=== PATIENT | female | born 1955 | race Caucasian/White ===

== ENCOUNTER → 2022-10-25 11:55 | Outpatient (CLI) | payer MEDICARE, OTHER, SELFPAY ==
--- NOTE | 2022-10-25 11:56 | DI.RAD.S_ITS ---
PROCEDURE: XR FINGER LT MIN 2V INDICATIONS: MCP joint TECHNIQUE: AP hand, 2 views of the 1st finger(s) acquired. COMPARISON: None. FINDINGS: Bones: No fractures or dislocations. Odyo-dn-ldfhbuns osteoarthritic changes are noted along radial aspect left wrist most notably at scaphoid trapezial joint and 1st CMC joint. No suspicious bony lesions. Soft tissues: No suspicious soft tissue calcifications. 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 No fracture or dislocation. Dictated by: Wilber Lopez M.D. on 10/25/2022 at 12:54 Approved by: Wilber Lopez M.D. on 10/25/2022 at 12:55
== END ==
PROVIDERS: Family Provider Nurse Practitioner Women's Health; PCP Family Medicine; Referring Provider Family Medicine; Visit Provider Family Medicine
DX: S60.019A Contusion of unspecified thumb without damage to nail, initial encounter (principal); M18.12 Unilateral primary osteoarthritis of first carpometacarpal joint, left hand; M19.032 Primary osteoarthritis, left wrist; X58.XXXA Exposure to other specified factors, initial encounter
CPT/HCPCS: 73140

== ENCOUNTER → 2023-04-01 | Outpatient (ROUT) | payer MEDICARE, OTHER, SELFPAY | PROVIDERS: Family Provider Nurse Practitioner Women's Health; PCP Family Medicine; Visit Provider Dermatology | DX: R21 Rash and other nonspecific skin eruption (principal) | CPT/HCPCS: 87529; 87798 ==

== ENCOUNTER → 2023-09-26 08:08 | Outpatient (CLI) | payer MEDICARE, OTHER, SELFPAY | PROVIDERS: Family Provider Nurse Practitioner Women's Health; PCP Family Medicine; Visit Provider Physician Assistant | DX: R30.0 Dysuria (principal) | CPT/HCPCS: 87077; 87086; 87186 ==

== ENCOUNTER → 2023-09-30 07:59 | Outpatient (CLI) | payer MEDICARE, OTHER, SELFPAY ==
[2023-09-30 09:39] LABS: Influenza A - CEPHEID Flu A NEGATIVE (NEGATIVE); Influenza B - CEPHEID Flu B NEGATIVE (NEGATIVE); Respiratory Syncytial Virus POSITIVE (Negative)
[2023-09-30 09:41] LABS: COVID-19 CEPHEID 4-PLEX PCR Negative (Negative)
== END ==
PROVIDERS: Family Provider Nurse Practitioner Women's Health; PCP Family Medicine; Visit Provider Student in an Organized Health Care Education/Training Program
DX: Z20.828 Contact with and (suspected) exposure to other viral communicable diseases (principal)
CPT/HCPCS: 0241U

== ENCOUNTER 2024-05-12 10:30 | Outpatient (RCR) | payer MEDICARE, OTHER, SELFPAY ==
--- NOTE | 2024-01-22 14:31 | PT.OIE ---
Current Diagnoses Other symptoms and signs involving the musculoskeletal system (01/22/24) Past Medical History (Last Reviewed 09/30/23 @ 10:21 by Mandy Solorzano PA-C) Atrophic vaginitis Fibroids (~1989) Hearing loss Herpes (~1978) Mumps Ovarian cyst Skin cancer (~2001) Vertigo (~2018) Wears glasses Past Surgical History (Last Reviewed 09/30/23 @ 10:21 by Mandy Solorzano PA-C) Anesthesia History of colonoscopy Visit Care Team Role Provider Type JESSICA Lindsey Family Provider Non-Staff Specialty: Medical Address: [address] [place] [address], [id number] Email: Jordan De La Rosa DO Attending Provider Physician Primary Care Provider Referring Provider Specialty: Family Practice Address: [address] [place] [address], [id number] Email: [email or web address] Physical Therapy Initial Evaluation PT-OP-A Visit Information Start: 01/22/24 10:26 Freq: Status: Active Protocol: Document 01/22/24 11:08 [facility] (Rec: 01/22/24 14:31 [facility] [id number]) Out-Patient Physical Therapy Visit Information Visit Information Visit Type Initial Evaluation Visit Note 09/10 Visit Start Time 11:20 Visit Stop Time 12:10 Visit Number 1 Number of DIRECTOR OF STUDENT AID Visits 0 PT-OP-B Current Condition Start: 01/22/24 10:26 Freq: Status: Active Protocol: Document 01/22/24 11:08 [facility] (Rec: 01/22/24 14:31 [facility] [id number]) Current Condition History of Current Condition Onset Date a couple years Current Complaints RLE dec ROM and giving out History of Current Condition Pt reports sometimes r leg gives out (thigh/hip) and does have dec ROM. It can be on/ off. Happen not for months. She had pain mid oct and couldn't get in til November to see doctor. When it happens, its hard to walk downhill. [place] walks [place] 4x[place] week and work outs at home doing resistance bands and free weights on the other days . The on and off pain has been a couple of years. She has had xrays of spine and back which didn't show much. 3-4x/ year this happens and lasts for a few weeks. Her is chiro that practices functional medicine an dhas done some work on her too. It can be stiff when first getting up. 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 She didn't have to see a doctor at the time. She was about 9 years old at the time. Pt reports occ back pain but not sure it is associated w/leg pain. She was just doing travelling and had R leg pain from buttocks to ankle when laying down and that happend a couple nights in a row and worked on her, and it resolved. Every now and then gets a leg ache there. Limited range into ER and can't sit catrina cross. When does yoga, has to sit on a block for catrina cross position. Juan Carlos did do cross fit where she had some leg injuries or back twinges, but it was only enough for her to just need a couple rest days or take it easier in workouts for a week or so. Some point in 2021 is when she had her first giving out episode. Pt had PT for dizziness d/t vertigo and since then balance has never been as good as before. Treatment Goals Patient/Caregiver Goals increase range of motion of R leg, be able to sit catrina cross, squat fully w/o tightness PT-OP-C Subjective Start: 01/22/24 10:26 Freq: Status: Active Protocol: Document 01/22/24 11:08 [facility] (Rec: 01/22/24 14:31 [facility] [id number]) Patient Questionnaires Lower Extremity Functional Scale LEFS Score 27/80 (pt filled out for instances when she does have pain) PT-OP-D Balance Start: 01/22/24 10:26 Freq: Status: Active Protocol: Document 01/22/24 11:08 [facility] (Rec: 01/22/24 14:31 [facility] [id number]) Balance Tests Single Limb Standing Single Limb- Right 9 sec inc deviation Single Limb- Left 12 sec PT-OP-E Functional Tests Start: 01/22/24 10:26 Freq: Status: Active Protocol: Document 01/22/24 11:08 [facility] (Rec: 01/22/24 14:31 [facility] [id number]) Functional Tests 30 Second Sit to Stand Test Score 12 Comments knee IR Five Times Sit to Stand Test Score 13 sec Squat Test Score can squat w/heels up but shifts slightly left and feels tight R hip Comments knee goes in on R PT-OP-G Mobility & Gait Start: 01/22/24 10:26 Freq: Status: Active Protocol: Document 01/22/24 11:08 [facility] (Rec: 01/22/24 14:31 [facility] [id number]) OP Gait Assessment Comments Gait Comments dec R>LLE push off and inc pelvis R rot w/push off; not straight trajectory w/fwd walk PT-OP-J Posture/Palpation/Skin Start: 01/22/24 10:26 Freq: Status: Active Protocol: Document 01/22/24 11:08 [facility] (Rec: 01/22/24 14:31 [facility] [id number]) Posture Evaluation [facility] Postural Classification System [facility] Postural Classifications Posterior/Posterior Vertebral Compression Test 1 Lumbar Protective Mechanism Left AP 0 Lumbar Protective Mechanism Right AP 0 Lumbar Protective Mechanism Left PA 0 Lumbar Protective Mechanism Right PA 0 Comments Posture Comments stands L rot, R pelvic shear, R Ilica crest higher, L>R femoral IR, L>R tibial IR ( both w/squat also), equal greater troch PT-OP-K Range of Motion Start: 01/22/24 10:26 Freq: Status: Active Protocol: Document 01/22/24 11:08 [facility] (Rec: 01/22/24 14:31 [facility] [id number]) Hip Goniometric Range of Motion Hip Left Active Flexion w/Knee Flexed 132 Straight Leg Raise 90 Internal Rotation 47 External Rotation 19 Right Active Flexion w/Knee Flexed 114 Straight Leg Raise 90 Internal Rotation 42 External Rotation 18 Comments ant tightness w/flex PT-OP-L Special Tests Start: 01/22/24 10:26 Freq: Status: Active Protocol: Document 01/22/24 11:08 [facility] (Rec: 01/22/24 14:31 [facility] [id number]) Special Tests Lumbar Spine Special Tests LEFT Test Results R weakness signficant; L min weakness PT-OP-M Strength Start: 01/22/24 10:26 Freq: Status: Active Protocol: Document 01/22/24 11:08 [facility] (Rec: 01/22/24 14:31 [facility] [id number]) Hip Strength Hip Manual Muscle Testing Right Flexion (L2) 3+ Fair+ Extension (S1) 3+ Fair+ Abduction 3+ Fair+ Adduction 4 Good External Rotation 3+ Fair+ Internal Rotation 4+ Good+ Left Flexion (L2) 4 Good Extension (S1) 4- Good- Abduction 4+ Good+ Adduction 4+ Good+ External Rotation 4- Good- Internal Rotation 4 Good Knee Strength Knee Manual Muscle Testing Right Flexion (S2) 4+ Good+ Extension (L3) 5 Normal Left Flexion (S2) 5 Normal Extension (L3) 5 Normal Ankle/Foot Strength Ankle and Foot Manual Muscle Testing Right Dorsiflexion (L4) 5 Normal Plantarflexion (S1) 5 Normal Left Dorsiflexion (L4) 5 Normal Plantarflexion (S1) 5 Normal Comments heel raises PT-OP-Q Treatments Start: 01/22/24 10:26 Freq: Status: Active Protocol: Document 01/22/24 11:08 [facility] (Rec: 01/22/24 14:31 [facility] [id number]) Self-Care/Home Management Treatment Education Other Education 16 min: discussed w/pt findings including dec jt mobility of hip, pelvis being off, weakness of R hip, dec core strenght and dec balance all affecting pain. edu how dec connection of RLE to core likely also affecting pain. PT-OP-T Assessment and Plan Start: 01/22/24 10:26 Freq: Status: Active Protocol: Document 01/22/24 11:08 [facility] (Rec: 01/22/24 14:31 [facility] [id number]) Physical Therapy Assessment Rehab Potential Rehabilitation Potential Excellent Evaluation Complexity Number of Personal Factors/Comorbidities 3 or More Number of Body Systems Impaired 4 or More Clinical Presentation at Evaluation Evolving Impairments Impairments Activity Tolerance,Balance, Functional Activities, Functional Mobility,Gait,Pain, Posture,ROM,Soft Tissue Mobility,Strength,Transfers Goals balance Income Auditor Goal (LTG) Pt will be able to do SLS at least 20 sec to demonstrate improved balnce LTG Duration 8/15 ROM Short Term Goal (STG) Pt iwll improve flex to equal to that of other side w/o feeling tight and improve ER by 10 deg STG Duration 7/1 Custodial Goal (LTG) Pt will be able to sit catrina cross and squat deep w/o feeling R hip tightness LTG Duration 04/15 strength Short Term Goal (STG) Pt will be indpe w/hEP STG Duration 03/02 Income Auditor Goal (LTG) Pt will score at least 3/5 LPM and at least 4+/5 on BLE MMT in order to allow greater ease with daily tasks and dec instances of RLE giving out. LTG Duration 04/15 Assessment Summary Assessment Pt presents w/2 years of dec R hip mobility along w/mult instances w/RLE giving out and having inc pain at that time. She has 3-4 bouts a year that last a couple weeks for the past couple years and (chiro) helps her through these episodes or back pain.S he does have hx of LBP and is careful how she moves for her back also. She had dec RLE/core connection, which likely contributes to this. She would benefit from skilled PT to address these deficits and improved pt function and dec instances of givng out. Physical Therapy Plan Frequency and Duration Frequency of Treatment 1-2x/wk Duration of treatment (weeks) 12 Plan of Care Start Date 01/22/24 Plan of Care End Date 04/15/24 Therapeutic Interventions Therapeutic Interventions Balance Training,Gait Training ,Home Exercise Program,Joint Mobilizations,Manual Therapy, Neuromuscular Re-education, Self-Care/Home Management,Soft Tissue Mobilization,Taping, Therapeutic Activities, Therapeutic Exercises Modalities Cold Pack/Ice Massage,Electric Stimulation,Hot Packs, Infrared Therapy,Traction- Mechanical,Ultrasound Next Visit Focus/Plan Next Note Type Treatment Note Next Visit Plan manual: hip R mobs, innominate and sacral mobs PNF for ant elevation & post dep HEP: DL hip flex isometric, sidesteps, planks, SLS, tandem balance exercises in clinic including balance board, foam, bosu
--- NOTE | 2024-01-22 14:31 | PT.OPPOC ---
Physical, Occupational & Speech Therapy At [facility] Current Diagnoses Other symptoms and signs involving the musculoskeletal system (01/22/24) Visit Care Team Role Provider Type JESSICA Lindsey Family Provider Non-Staff Specialty: Medical Address: [address] [place] [address], [id number] Email: Jordan De La Rosa DO Attending Provider Physician Primary Care Provider Referring Provider Specialty: Family Practice Address: [address] [place] [address], [address], [address] Email: [email or web address] Plan Of Care PT-OP-T Assessment and Plan Start: 01/22/24 10:26 Freq: Status: Active Protocol: Document 01/22/24 11:08 [facility] (Rec: 01/22/24 14:31 [facility] [id number]) Physical Therapy Assessment Rehab Potential Rehabilitation Potential Excellent Evaluation Complexity Number of Personal Factors/Comorbidities 3 or More Number of Body Systems Impaired 4 or More Clinical Presentation at Evaluation Evolving Impairments Impairments Activity Tolerance,Balance, Functional Activities, Functional Mobility,Gait,Pain, Posture,ROM,Soft Tissue Mobility,Strength,Transfers Goals balance Senior Care Goal (LTG) Pt will be able to do SLS at least 20 sec to demonstrate improved balnce LTG Duration 815 ROM Short Term Goal (STG) Pt iwll improve flex to equal to that of other side w/o feeling tight and improve ER by 10 deg STG Duration 03/01 Tc Operator Goal (LTG) Pt will be able to sit catrina cross and squat deep w/o feeling R hip tightness LTG Duration 8 strength Short Term Goal (STG) Pt will be indpe w/hEP STG Duration 03/02 Senior Care Goal (LTG) Pt will score at least 3/5 LPM and at least 4+/5 on BLE MMT in order to allow greater ease with daily tasks and dec instances of RLE giving out. LTG Duration 04/15 Assessment Summary Assessment Pt presents w/2 years of dec R hip mobility along w/mult instances w/RLE giving out and having inc pain at that time. She has 3-4 bouts a year that last a couple weeks for the past couple years and (chiro) helps her through these episodes or back pain.S he does have hx of LBP and is careful how she moves for her back also. She had dec RLE/core connection, which likely contributes to this. She would benefit from skilled PT to address these deficits and improved pt function and dec instances of givng out. Physical Therapy Plan Frequency and Duration Frequency of Treatment 1-2x/wk Duration of treatment (weeks) 12 Plan of Care Start Date 01/22/24 Plan of Care End Date 04/15/24 Therapeutic Interventions Therapeutic Interventions Balance Training,Gait Training ,Home Exercise Program,Joint Mobilizations,Manual Therapy, Neuromuscular Re-education, Self-Care/Home Management,Soft Tissue Mobilization,Taping, Therapeutic Activities, Therapeutic Exercises Modalities Cold Pack/Ice Massage,Electric Stimulation,Hot Packs, Infrared Therapy,Traction- Mechanical,Ultrasound Next Visit Focus/Plan Next Note Type Treatment Note Next Visit Plan manual: hip R mobs, innominate and sacral mobs PNF for ant elevation & post dep HEP: DL hip flex isometric, sidesteps, planks, SLS, tandem balance exercises in clinic including balance board, foam, bosu Plan of Care Dates Plan of Care Start Date 01/22/24 Plan of Care End Date 04/15/24 Electronically Signed by: Emerita Torres, PT 01/22/24 9137 If you are in agreement with this Plan of Care, please return a signed and dated copy. I have reviewed this Plan of Care and certify that the skilled therapy services above are required to meet the patient?s needs. Physician Signature Date Printed Name and Credentials Clinical Instructor Signature Printed Name and Credentials
--- NOTE | 2024-01-28 14:26 | PT.OTN ---
Current Diagnoses Other symptoms and signs involving the musculoskeletal system (01/28/24) Physical Therapy Treatment Note PT-OP-A Visit Information Start: 01/22/24 10:26 Freq: Status: Active Protocol: Document 01/28/24 13:01 [facility] (Rec: 01/28/24 14:26 [facility] [id number]) Out-Patient Physical Therapy Visit Information Visit Information Visit Type Treatment Note Visit Note 10/11 Visit Start Time 13:04 Visit Stop Time 13:47 Visit Number 2 Number of BRANCH OR DEPARTMENT CHIEF LIBRARIAN Visits 0 PT-OP-B Current Condition Start: 01/22/24 10:26 Freq: Status: Active Protocol: Document 01/22/24 11:08 [facility] (Rec: 01/22/24 14:31 [facility] [id number]) Current Condition History of Current Condition Onset Date a couple years Current Complaints RLE dec ROM and giving out History of Current Condition Pt reports sometimes r leg gives out (thigh/hip) and does have dec ROM. It can be on/ off. Happen not for months. She had pain mid oct and couldn't get in til November to see doctor. When it happens, its hard to walk downhill. [place] 4x[place] and work outs at home doing resistance bands and free weights on the other days . The on and off pain has been a couple of years. She has had xrays of spine and back which didn't show much. 3-4x/ year this happens and lasts for a few weeks. Her is chiro that practices functional medicine an dhas done some work on her too. It can be stiff when first getting up. 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 She didn't have to see a doctor at the time. She was about 9 years old at the time. Pt reports occ back pain but not sure it is associated w/leg pain. She was just doing travelling and had R leg pain from buttocks to ankle when laying down and that happend a couple nights in a row and worked on her, and it resolved. Every now and then gets a leg ache there. Limited range into ER and can't sit catrina cross. When does yoga, has to sit on a block for catrina cross position. Seh did do cross fit where she had some leg injuries or back twinges, but it was only enough for her to just need a couple rest days or take it easier in workouts for a week or so. Some point in 2021 is when she had her first giving out episode. Pt had PT for dizziness d/t vertigo and since then balance has never been as good as before. Treatment Goals Patient/Caregiver Goals increase range of motion of R leg, be able to sit catrina cross, squat fully w/o tightness PT-OP-C Subjective Start: 01/22/24 10:26 Freq: Status: Active Protocol: Document 01/28/24 13:01 [facility] (Rec: 01/28/24 14:26 [facility] [id number]) OP-PT Subjective Patient Comments Patient Comments pt reports walked about 6 miles in [place] and R ant thigh was sore after. PT-OP-D Balance Start: 01/22/24 10:26 Freq: Status: Active Protocol: Document 01/22/24 11:08 [facility] (Rec: 01/22/24 14:31 [facility] [id number]) Balance Tests Single Limb Standing Single Limb- Right 9 sec inc deviation Single Limb- Left 12 sec PT-OP-E Functional Tests Start: 01/22/24 10:26 Freq: Status: Active Protocol: Document 01/22/24 11:08 [facility] (Rec: 01/22/24 14:31 [facility] [id number]) Functional Tests 30 Second Sit to Stand Test Score 12 Comments knee IR Five Times Sit to Stand Test Score 13 sec Squat Test Score can squat w/heels up but shifts slightly left and feels tight R hip Comments knee goes in on R PT-OP-G Mobility & Gait Start: 01/22/24 10:26 Freq: Status: Active Protocol: Document 01/22/24 11:08 [facility] (Rec: 01/22/24 14:31 [facility] [id number]) OP Gait Assessment Comments Gait Comments dec R>LLE push off and inc pelvis R rot w/push off; not straight trajectory w/fwd walk PT-OP-J Posture/Palpation/Skin Start: 01/22/24 10:26 Freq: Status: Active Protocol: Document 01/22/24 11:08 [facility] (Rec: 01/22/24 14:31 [facility] [id number]) Posture Evaluation [facility] Postural Classification System [facility] Postural Classifications Posterior/Posterior Vertebral Compression Test 1 Lumbar Protective Mechanism Left AP 0 Lumbar Protective Mechanism Right AP 0 Lumbar Protective Mechanism Left PA 0 Lumbar Protective Mechanism Right PA 0 Comments Posture Comments stands L rot, R pelvic shear, R Ilica crest higher, L>R femoral IR, L>R tibial IR ( both w/squat also), equal greater troch PT-OP-K Range of Motion Start: 01/22/24 10:26 Freq: Status: Active Protocol: Document 01/22/24 11:08 [facility] (Rec: 01/22/24 14:31 [facility] [id number]) Hip Goniometric Range of Motion Hip Left Active Flexion w/Knee Flexed 132 Straight Leg Raise 90 Internal Rotation 47 External Rotation 19 Right Active Flexion w/Knee Flexed 114 Straight Leg Raise 90 Internal Rotation 42 External Rotation 18 Comments ant tightness w/flex PT-OP-L Special Tests Start: 01/22/24 10:26 Freq: Status: Active Protocol: Document 01/22/24 11:08 [facility] (Rec: 01/22/24 14:31 [facility] [id number]) Special Tests Lumbar Spine Special Tests LEFT Test Results R weakness signficant; L min weakness PT-OP-M Strength Start: 01/22/24 10:26 Freq: Status: Active Protocol: Document 01/22/24 11:08 [facility] (Rec: 01/22/24 14:31 [facility] [id number]) Hip Strength Hip Manual Muscle Testing Right Flexion (L2) 3+ Fair+ Extension (S1) 3+ Fair+ Abduction 3+ Fair+ Adduction 4 Good External Rotation 3+ Fair+ Internal Rotation 4+ Good+ Left Flexion (L2) 4 Good Extension (S1) 4- Good- Abduction 4+ Good+ Adduction 4+ Good+ External Rotation 4- Good- Internal Rotation 4 Good Knee Strength Knee Manual Muscle Testing Right Flexion (S2) 4+ Good+ Extension (L3) 5 Normal Left Flexion (S2) 5 Normal Extension (L3) 5 Normal Ankle/Foot Strength Ankle and Foot Manual Muscle Testing Right Dorsiflexion (L4) 5 Normal Plantarflexion (S1) 5 Normal Left Dorsiflexion (L4) 5 Normal Plantarflexion (S1) 5 Normal Comments heel raises PT-OP-Q Treatments Start: 01/22/24 10:26 Freq: Status: Active Protocol: Document 01/28/24 13:01 [facility] (Rec: 01/28/24 14:26 [facility] [id number]) Therapeutic Exercises Supine Exercises supine Supine Exercise Name 1. DL flex 2. diagonal B 3. ext B 4. flex B Side bilateral Reps/Minutes 30 sec ea Comments inc time for positioning Sitting Exercises stretch Sitting Exercise Name figure 4 Side right Reps/Minutes 30sec Standing Exercises sidestep Standing Exercise Name in mini squat Side bilateral Equipment Used lvl 2 at knees Reps/Minutes 20ft Comments cues knees over ankles Other Exercises roll out Other Exercise Name R glute w/tennis ball and R rolling pin to add Side right Manual Therapy Treatment Soft Tissue Mobilization add Body Location R Mobilization Type Rolling Intensity/Depth Moderate Body Position Hooklying Comments ER glute Body Location R Mobilization Type Sustained Pressure Intensity/Depth Moderate Body Position Prone Comments w/hip IR/ER Joint Mobilizations sacrum Comments caudal R and UPA R FM innominate Joint R caudal, ER (prone and hooklying) FM hip Comments R hip on axis ER prone and free the ball ER hooklying, inf glide R, abd inf med FM PT-OP-T Assessment and Plan Start: 01/22/24 10:26 Freq: Status: Active Protocol: Document 01/28/24 13:01 [facility] (Rec: 01/28/24 14:26 [facility] [id number]) Physical Therapy Assessment Goals balance Usp Goal (LTG) Pt will be able to do SLS at least 20 sec to demonstrate improved balnce LTG Duration 8/15 ROM Short Term Goal (STG) Pt iwll improve flex to equal to that of other side w/o feeling tight and improve ER by 10 deg STG Duration 7/1 Usp Goal (LTG) Pt will be able to sit catrnia cross and squat deep w/o feeling R hip tightness LTG Duration 8/15 strength Short Term Goal (STG) Pt will be indpe w/hEP STG Duration 7/2 Usp Goal (LTG) Pt will score at least 3/5 LPM and at least 4+/5 on BLE MMT in order to allow greater ease with daily tasks and dec instances of RLE giving out. LTG Duration 815 Assessment Summary Assessment Pt had significantly improved ER after manual treatment. She required cues throughout exercises for form. She has major R hip limitations that likely affects her pain instances. Physical Therapy Plan Frequency and Duration Frequency of Treatment 1-2x/wk Duration of treatment (weeks) 12 Plan of Care Start Date 01/22/24 Plan of Care End Date 04/15/24 Next Visit Focus/Plan Next Note Type Treatment Note Next Visit Plan manual: hip R mobs, innominate and sacral mobs, R add STM PNF for ant elevation & post dep HEP: DL hip flex isometric, sidesteps, planks, SLS, tandem balance exercises in clinic including balance board, foam, bosu
--- NOTE | 2024-01-30 11:12 | PT.OTN ---
Current Diagnoses Other symptoms and signs involving the musculoskeletal system (01/30/24) Physical Therapy Treatment Note PT-OP-A Visit Information Start: 01/22/24 10:26 Freq: Status: Active Protocol: Document 01/30/24 10:32 SP (Rec: 01/30/24 11:20 SP [id number]) Out-Patient Physical Therapy Visit Information Visit Information Visit Type Treatment Note Visit Note 11/08 Visit Start Time 10:32 Visit Stop Time 11:12 Visit Number 3 Number of RECEIVING CLERK Visits 1 PT-OP-B Current Condition Start: 01/22/24 10:26 Freq: Status: Active Protocol: Document 01/22/24 11:08 LR (Rec: 01/22/24 14:31 LR [id number]) Current Condition History of Current Condition Onset Date a couple years Current Complaints RLE dec ROM and giving out History of Current Condition Pt reports sometimes r leg gives out (thigh/hip) and does have dec ROM. It can be on/ off. Happen not for months. She had pain mid oct and couldn't get in til November to see doctor. When it happens, its hard to walk downhill. [place] walks [place] 4x[place] and work outs at home doing resistance bands and free weights on the other days . The on and off pain has been a couple of years. She has had xrays of spine and back which didn't show much. 3-4x/ year this happens and lasts for a few weeks. Her is chiro that practices functional medicine an dhas done some work on her too. It can be stiff when first getting up. 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 She didn't have to see a doctor at the time. She was about 9 years old at the time. Pt reports occ back pain but not sure it is associated w/leg pain. She was just doing travelling and had R leg pain from buttocks to ankle when laying down and that happend a couple nights in a row and worked on her, and it resolved. Every now and then gets a leg ache there. Limited range into ER and can't sit catrina cross. When does yoga, has to sit on a block for catrina cross position. Se did do cross fit where she had some leg injuries or back twinges, but it was only enough for her to just need a couple rest days or take it easier in workouts for a week or so. Some point in 2021 is when she had her first giving out episode. Pt had PT for dizziness d/t vertigo and since then balance has never been as good as before. Treatment Goals Patient/Caregiver Goals increase range of motion of R leg, be able to sit catrina cross, squat fully w/o tightness PT-OP-C Subjective Start: 01/22/24 10:26 Freq: Status: Active Protocol: Document 01/30/24 10:32 SP (Rec: 01/30/24 11:20 SP [id number]) OP-PT Subjective Patient Comments Patient Comments Pt reports wants to review HEP , question with abdominal series, #4 states Repeat B but unsure what B is to repeat. Little soreness post last tx. She states feels tightness at adductors and heat R anterolateral thigh. Expected soreness post manual and exercises doing at home. PT-OP-D Balance Start: 01/22/24 10:26 Freq: Status: Active Protocol: Document 01/22/24 11:08 [facility] (Rec: 01/22/24 14:31 [facility] [id number]) Balance Tests Single Limb Standing Single Limb- Right 9 sec inc deviation Single Limb- Left 12 sec PT-OP-E Functional Tests Start: 01/22/24 10:26 Freq: Status: Active Protocol: Document 01/22/24 11:08 [facility] (Rec: 01/22/24 14:31 [facility] [id number]) Functional Tests 30 Second Sit to Stand Test Score 12 Comments knee IR Five Times Sit to Stand Test Score 13 sec Squat Test Score can squat w/heels up but shifts slightly left and feels tight R hip Comments knee goes in on R PT-OP-G Mobility & Gait Start: 01/22/24 10:26 Freq: Status: Active Protocol: Document 01/22/24 11:08 [facility] (Rec: 01/22/24 14:31 [facility] [id number]) OP Gait Assessment Comments Gait Comments dec R>LLE push off and inc pelvis R rot w/push off; not straight trajectory w/fwd walk PT-OP-J Posture/Palpation/Skin Start: 01/22/24 10:26 Freq: Status: Active Protocol: Document 01/22/24 11:08 [facility] (Rec: 01/22/24 14:31 [facility] [id number]) Posture Evaluation [facility] Postural Classification System Bart Postural Classifications Posterior/Posterior Vertebral Compression Test 1 Lumbar Protective Mechanism Left AP 0 Lumbar Protective Mechanism Right AP 0 Lumbar Protective Mechanism Left PA 0 Lumbar Protective Mechanism Right PA 0 Comments Posture Comments stands L rot, R pelvic shear, R Ilica crest higher, L>R femoral IR, L>R tibial IR ( both w/squat also), equal greater troch PT-OP-K Range of Motion Start: 01/22/24 10:26 Freq: Status: Active Protocol: Document 01/22/24 11:08 [facility] (Rec: 01/22/24 14:31 [facility] [id number]) Hip Goniometric Range of Motion Hip Left Active Flexion w/Knee Flexed 132 Straight Leg Raise 90 Internal Rotation 47 External Rotation 19 Right Active Flexion w/Knee Flexed 114 Straight Leg Raise 90 Internal Rotation 42 External Rotation 18 Comments ant tightness w/flex PT-OP-L Special Tests Start: 01/22/24 10:26 Freq: Status: Active Protocol: Document 01/22/24 11:08 [facility] (Rec: 01/22/24 14:31 [facility] [id number]) Special Tests Lumbar Spine Special Tests LEFT Test Results R weakness signficant; L min weakness PT-OP-M Strength Start: 01/22/24 10:26 Freq: Status: Active Protocol: Document 01/22/24 11:08 [facility] (Rec: 01/22/24 14:31 [facility] [id number]) Hip Strength Hip Manual Muscle Testing Right Flexion (L2) 3+ Fair+ Extension (S1) 3+ Fair+ Abduction 3+ Fair+ Adduction 4 Good External Rotation 3+ Fair+ Internal Rotation 4+ Good+ Left Flexion (L2) 4 Good Extension (S1) 4- Good- Abduction 4+ Good+ Adduction 4+ Good+ External Rotation 4- Good- Internal Rotation 4 Good Knee Strength Knee Manual Muscle Testing Right Flexion (S2) 4+ Good+ Extension (L3) 5 Normal Left Flexion (S2) 5 Normal Extension (L3) 5 Normal Ankle/Foot Strength Ankle and Foot Manual Muscle Testing Right Dorsiflexion (L4) 5 Normal Plantarflexion (S1) 5 Normal Left Dorsiflexion (L4) 5 Normal Plantarflexion (S1) 5 Normal Comments heel raises PT-OP-Q Treatments Start: 01/22/24 10:26 Freq: Status: Active Protocol: Document 01/30/24 10:32 SP (Rec: 01/30/24 11:20 SP [id number]) Therapeutic Exercises Supine Exercises supine Supine Exercise Name 1. DL flex 2. diagonal B 3. ext B 4. flex B Side bilateral Reps/Minutes 30 sec ea Comments inc time for positioning Sitting Exercises stretch Sitting Exercise Name figure 4 Side right Reps/Minutes 30sec Comments cued tall, fwd trunk with gentle painfree pressure ER Other Exercises roll out Other Exercise Name R glute Side right Equipment Used w/tennis ball at wall, R rolling pin to add Comments cued R knee alignment with foot when rolling glute at wall Manual Therapy Treatment Soft Tissue Mobilization add Body Location R Mobilization Type Instrument Assisted,Rolling Intensity/Depth Moderate Body Position Hooklying Comments manual and rolling pin during ER glute Body Location R Mobilization Type Sustained Pressure,Other Intensity/Depth Moderate Body Position Sidelying Comments w/hip IR/ER Joint Mobilizations innominate Joint R ASIS anterior rotated, L ASIS posterior rotated Comments MET R isometric hip ext 90/90. L isometric hip flex 90/90. No in/outflare Wilson. hip Comments strap: R free the ball ER hooklying PT-OP-T Assessment and Plan Start: 01/22/24 10:26 Freq: Status: Active Protocol: Document 01/30/24 10:32 SP (Rec: 01/30/24 11:20 SP [id number]) Physical Therapy Assessment Goals balance Senior Care Goal (LTG) Pt will be able to do SLS at least 20 sec to demonstrate improved balnce LTG Duration 8/15 ROM Short Term Goal (STG) Pt iwll improve flex to equal to that of other side w/o feeling tight and improve ER by 10 deg STG Duration 7/1 Pipelines Supervisor Goal (LTG) Pt will be able to sit catrina cross and squat deep w/o feeling R hip tightness LTG Duration 8/15 strength Short Term Goal (STG) Pt will be indpe w/hEP STG Duration 7/2 Pipelines Supervisor Goal (LTG) Pt will score at least 3/5 LPM and at least 4+/5 on BLE MMT in order to allow greater ease with daily tasks and dec instances of RLE giving out. LTG Duration 04/15 Assessment Summary Assessment Tx focused on proper form with HEP using HO. Good manual response and carryover, ed instruction for set up and angle with R knee alignment with foot ball roll glut and rolling pin seated foot elevated on step. Pt reported felt more confident with how and when should perform HEP. Physical Therapy Plan Frequency and Duration Frequency of Treatment 1-2x/wk Duration of treatment (weeks) 12 Plan of Care Start Date 01/22/24 Plan of Care End Date 04/15/24 Therapeutic Interventions Therapeutic Interventions Balance Training,Gait Training ,Home Exercise Program,Joint Mobilizations,Manual Therapy, Neuromuscular Re-education, Self-Care/Home Management,Soft Tissue Mobilization,Taping, Therapeutic Activities, Therapeutic Exercises Modalities Cold Pack/Ice Massage,Electric Stimulation,Hot Packs, Infrared Therapy,Traction- Mechanical,Ultrasound Next Visit Focus/Plan Next Note Type Treatment Note Next Visit Plan REview HEP: progress as indicated next tx. Pt wants to incorporate balance eventually. POC: manual: hip R mobs, innominate and sacral mobs, R add STM PNF for ant elevation & post dep HEP: DL hip flex isometric, sidesteps, planks, SLS, tandem balance exercises in clinic including balance board, foam, bosu
--- NOTE | 2024-02-02 11:16 | PT.OTN ---
Current Diagnoses Other symptoms and signs involving the musculoskeletal system (02/02/24) Physical Therapy Treatment Note PT-OP-A Visit Information Start: 01/22/24 10:26 Freq: Status: Active Protocol: Document 02/02/24 10:31 SP (Rec: 02/02/24 11:22 SP [id number]) Out-Patient Physical Therapy Visit Information Visit Information Visit Type Treatment Note Visit Note 12/09 post eval Visit Start Time 10:31 Visit Stop Time 11:16 Visit Number 4 Number of GALLERY OR MUSEUM GUIDE Visits 2 PT-OP-B Current Condition Start: 01/22/24 10:26 Freq: Status: Active Protocol: Document 01/22/24 11:08 [facility] (Rec: 01/22/24 14:31 [facility] [id number]) Current Condition History of Current Condition Onset Date a couple years Current Complaints RLE dec ROM and giving out History of Current Condition Pt reports sometimes r leg gives out (thigh/hip) and does have dec ROM. It can be on/ off. Happen not for months. She had pain mid oct and couldn't get in til November to see doctor. When it happens, its hard to walk downhill. [place] 4x[place] and work outs at home doing resistance bands and free weights on the other days . The on and off pain has been a couple of years. She has had xrays of spine and back which didn't show much. 3-4x/ year this happens and lasts for a few weeks. Her is chiro that practices functional medicine an dhas done some work on her too. It can be stiff when first getting up. Has massage and acupuncture but nothing has helped jail. 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 She didn't have to see a doctor at the time. She was about 9 years old at the time. Pt reports occ back pain but not sure it is associated w/leg pain. She was just doing travelling and had R leg pain from buttocks to ankle when laying down and that happend a couple nights in a row and worked on her, and it resolved. Every now and then gets a leg ache there. Limited range into ER and can't sit catrina cross. When does yoga, has to sit on a block for catrina cross position. Seh did do cross fit where she had some leg injuries or back twinges, but it was only enough for her to just need a couple rest days or take it easier in workouts for a week or so. Some point in 2021 is when she had her first giving out episode. Pt had PT for dizziness d/t vertigo and since then balance has never been as good as before. Treatment Goals Patient/Caregiver Goals increase range of motion of R leg, be able to sit catrina cross, squat fully w/o tightness PT-OP-C Subjective Start: 01/22/24 10:26 Freq: Status: Active Protocol: Document 02/02/24 10:31 SP (Rec: 02/02/24 11:22 SP [id number]) OP-PT Subjective Patient Comments Patient Comments Pt reports wants to review ball wall self STMs with yoga ball vs tennis ball and rolling pin. ALso the abdominal series HEP still confused on #3-4. PT-OP-D Balance Start: 01/22/24 10:26 Freq: Status: Active Protocol: Document 01/22/24 11:08 [facility] (Rec: 01/22/24 14:31 [facility] [id number]) Balance Tests Single Limb Standing Single Limb- Right 9 sec inc deviation Single Limb- Left 12 sec PT-OP-E Functional Tests Start: 01/22/24 10:26 Freq: Status: Active Protocol: Document 01/22/24 11:08 [facility] (Rec: 01/22/24 14:31 [facility] [id number]) Functional Tests 30 Second Sit to Stand Test Score 12 Comments knee IR Five Times Sit to Stand Test Score 13 sec Squat Test Score can squat w/heels up but shifts slightly left and feels tight R hip Comments knee goes in on R PT-OP-G Mobility & Gait Start: 01/22/24 10:26 Freq: Status: Active Protocol: Document 01/22/24 11:08 [facility] (Rec: 01/22/24 14:31 [facility] [id number]) OP Gait Assessment Comments Gait Comments dec R>LLE push off and inc pelvis R rot w/push off; not straight trajectory w/fwd walk PT-OP-J Posture/Palpation/Skin Start: 01/22/24 10:26 Freq: Status: Active Protocol: Document 01/22/24 11:08 [facility] (Rec: 01/22/24 14:31 [facility] [id number]) Posture Evaluation [facility] Postural Classification System Bart Postural Classifications Posterior/Posterior Vertebral Compression Test 1 Lumbar Protective Mechanism Left AP 0 Lumbar Protective Mechanism Right AP 0 Lumbar Protective Mechanism Left PA 0 Lumbar Protective Mechanism Right PA 0 Comments Posture Comments stands L rot, R pelvic shear, R Ilica crest higher, L>R femoral IR, L>R tibial IR ( both w/squat also), equal greater troch PT-OP-K Range of Motion Start: 01/22/24 10:26 Freq: Status: Active Protocol: Document 01/22/24 11:08 [facility] (Rec: 01/22/24 14:31 [facility] [id number]) Hip Goniometric Range of Motion Hip Left Active Flexion w/Knee Flexed 132 Straight Leg Raise 90 Internal Rotation 47 External Rotation 19 Right Active Flexion w/Knee Flexed 114 Straight Leg Raise 90 Internal Rotation 42 External Rotation 18 Comments ant tightness w/flex PT-OP-L Special Tests Start: 01/22/24 10:26 Freq: Status: Active Protocol: Document 01/22/24 11:08 [facility] (Rec: 01/22/24 14:31 [facility] [id number]) Special Tests Lumbar Spine Special Tests LEFT Test Results R weakness signficant; L min weakness PT-OP-M Strength Start: 01/22/24 10:26 Freq: Status: Active Protocol: Document 01/22/24 11:08 [facility] (Rec: 01/22/24 14:31 [facility] [id number]) Hip Strength Hip Manual Muscle Testing Right Flexion (L2) 3+ Fair+ Extension (S1) 3+ Fair+ Abduction 3+ Fair+ Adduction 4 Good External Rotation 3+ Fair+ Internal Rotation 4+ Good+ Left Flexion (L2) 4 Good Extension (S1) 4- Good- Abduction 4+ Good+ Adduction 4+ Good+ External Rotation 4- Good- Internal Rotation 4 Good Knee Strength Knee Manual Muscle Testing Right Flexion (S2) 4+ Good+ Extension (L3) 5 Normal Left Flexion (S2) 5 Normal Extension (L3) 5 Normal Ankle/Foot Strength Ankle and Foot Manual Muscle Testing Right Dorsiflexion (L4) 5 Normal Plantarflexion (S1) 5 Normal Left Dorsiflexion (L4) 5 Normal Plantarflexion (S1) 5 Normal Comments heel raises PT-OP-Q Treatments Start: 01/22/24 10:26 Freq: Status: Active Protocol: Document 02/02/24 10:31 SP (Rec: 02/02/24 11:22 SP [id number]) Therapeutic Exercises Supine Exercises self pelvic realignment Supine Exercise Name MET R ant>posterior, L post> anterior Side bilateral Equipment Used dowel laced through legs Reps/Minutes 5 SH x5 reps Comments pnfree Fig 4 Supine Exercise Name R ankle L inner thigh, L ankle over R thigh Side bilateral Reps/Minutes 30SH Comments good adductor stretch supine Supine Exercise Name 1. DL flex 2. diagonal B 3. ext B 4. flex B Side bilateral Reps/Minutes 30 sec 1-3, 10 SH#4 /c pillow under pelvis Comments inc time for positioning 2-4, breath Prone Exercises quad stretch Resistance pillow under pelvis Equipment Used strap R ankle, able reach L ankle Reps/Minutes 30 SH x2 Comments pillow helped LB tension reducation on R- better stretch Standing Exercises lunge Equipment Used mirror, light contact counter as needed Reps/Minutes 2x5 reps Comments max cues for feet// with knees Other Exercises roll out Other Exercise Name R glute Side right Equipment Used w/tennis ball at wall, R rolling pin to add Comments cued R knee alignment with foot when rolling glute at wall Manual Therapy Treatment Other Other Manual Treatments ASIS R ant tilt, L post tilt- instruction self alignment: use dowel hip ext isometric R , hip flex isometric L- correction level pelvis Neuro Re-Education Treatment Balance Activities BOSU Details lunge stepping Surface AROM> 5# DBs Comments very challenging maintain feet & knees parallel. PT-OP-T Assessment and Plan Start: 01/22/24 10:26 Freq: Status: Active Protocol: Document 02/02/24 10:31 SP (Rec: 02/02/24 11:22 SP [id number]) Physical Therapy Assessment Goals balance Retirement Goal (LTG) Pt will be able to do SLS at least 20 sec to demonstrate improved balnce LTG Duration 8/15 ROM Short Term Goal (STG) Pt iwll improve flex to equal to that of other side w/o feeling tight and improve ER by 10 deg STG Duration 7/1 Supervisor Capacitor Processing Goal (LTG) Pt will be able to sit catrina cross and squat deep w/o feeling R hip tightness LTG Duration 04/15 strength Short Term Goal (STG) Pt will be indpe w/hEP STG Duration 03/02 Supervisor [employer] Processing Goal (LTG) Pt will score at least 3/5 LPM and at least 4+/5 on BLE MMT in order to allow greater ease with daily tasks and dec instances of RLE giving out. LTG Duration 04/15 Assessment Summary Assessment Pt had good response to review self MET pelvic alignment, use rolling pin and ball on wall for carryover flexibility and leg/ hip relief. Improved understanding use HOs with ther ex review, ed cues for hand an LE positioning ab series. Incorporated quad stretch and more active progression lunge for glut and hip abd strengthening toward return to self gym program. Physical Therapy Plan Frequency and Duration Frequency of Treatment 1-2x/wk Duration of treatment (weeks) 12 Plan of Care Start Date 01/22/24 Plan of Care End Date 04/15/24 Therapeutic Interventions Therapeutic Interventions Balance Training,Gait Training ,Home Exercise Program,Joint Mobilizations,Manual Therapy, Neuromuscular Re-education, Self-Care/Home Management,Soft Tissue Mobilization,Taping, Therapeutic Activities, Therapeutic Exercises Modalities Cold Pack/Ice Massage,Electric Stimulation,Hot Packs, Infrared Therapy,Traction- Mechanical,Ultrasound Next Visit Focus/Plan Next Note Type Treatment Note Next Visit Plan REview added lunges as progression and self MET /c dowel. Pt wants to incorporate balance eventually. POC: manual: hip R mobs, innominate and sacral mobs, R add STM PNF for ant elevation & post dep HEP: DL hip flex isometric, sidesteps, planks, SLS, tandem balance exercises in clinic including balance board, foam, bosu
--- NOTE | 2024-02-04 11:47 | PT.OTN ---
Current Diagnoses Other symptoms and signs involving the musculoskeletal system (02/04/24) Physical Therapy Treatment Note PT-OP-A Visit Information Start: 01/22/24 10:26 Freq: Status: Active Protocol: Document 02/04/24 10:33 [facility] (Rec: 02/04/24 11:47 [facility] [id number]) Out-Patient Physical Therapy Visit Information Visit Information Visit Type Treatment Note Visit Note 01/08 Visit Start Time 10:34 Visit Stop Time 11:15 Visit Number 5 Number of SADDLE MAKER Visits 0 PT-OP-B Current Condition Start: 01/22/24 10:26 Freq: Status: Active Protocol: Document 01/22/24 11:08 [facility] (Rec: 01/22/24 14:31 [facility] [id number]) Current Condition History of Current Condition Onset Date a couple years Current Complaints RLE dec ROM and giving out History of Current Condition Pt reports sometimes r leg gives out (thigh/hip) and does have dec ROM. It can be on/ off. Happen not for months. She had pain mid oct and couldn't get in til November to see doctor. When it happens, its hard to walk downhill. [place] 4x[place] and work outs at home doing resistance bands and free weights on the other days . The on and off pain has been a couple of years. She has had xrays of spine and back which didn't show much. 3-4x/ year this happens and lasts for a few weeks. Her is chiro that practices functional medicine an dhas done some work on her too. It can be stiff when first getting up. Has massage and acupuncture but nothing has helped [employer]. 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 She didn't have to see a doctor at the time. She was about 9 years old at the time. Pt reports occ back pain but not sure it is associated w/leg pain. She was just doing travelling and had R leg pain from buttocks to ankle when laying down and that happend a couple nights in a row and worked on her, and it resolved. Every now and then gets a leg ache there. Limited range into ER and can't sit catrina cross. When does yoga, has to sit on a block for catrina cross position. Seh did do cross fit where she had some leg injuries or back twinges, but it was only enough for her to just need a couple rest days or take it easier in workouts for a week or so. Some point in 2021 is when she had her first giving out episode. Pt had PT for dizziness d/t vertigo and since then balance has never been as good as before. Treatment Goals Patient/Caregiver Goals increase range of motion of R leg, be able to sit catrina cross, squat fully w/o tightness PT-OP-C Subjective Start: 01/22/24 10:26 Freq: Status: Active Protocol: Document 02/04/24 10:33 [facility] (Rec: 02/04/24 11:47 [facility] [id number]) OP-PT Subjective Patient Comments Patient Comments reports lunges are difficult. did a workout earlier PT-OP-D Balance Start: 01/22/24 10:26 Freq: Status: Active Protocol: Document 01/22/24 11:08 [facility] (Rec: 01/22/24 14:31 [facility] [id number]) Balance Tests Single Limb Standing Single Limb- Right 9 sec inc deviation Single Limb- Left 12 sec PT-OP-E Functional Tests Start: 01/22/24 10:26 Freq: Status: Active Protocol: Document 01/22/24 11:08 [facility] (Rec: 01/22/24 14:31 [facility] [id number]) Functional Tests 30 Second Sit to Stand Test Score 12 Comments knee IR Five Times Sit to Stand Test Score 13 sec Squat Test Score can squat w/heels up but shifts slightly left and feels tight R hip Comments knee goes in on R PT-OP-G Mobility & Gait Start: 01/22/24 10:26 Freq: Status: Active Protocol: Document 01/22/24 11:08 [facility] (Rec: 01/22/24 14:31 [facility] [id number]) OP Gait Assessment Comments Gait Comments dec R>LLE push off and inc pelvis R rot w/push off; not straight trajectory w/fwd walk PT-OP-J Posture/Palpation/Skin Start: 01/22/24 10:26 Freq: Status: Active Protocol: Document 01/22/24 11:08 [facility] (Rec: 01/22/24 14:31 [facility] [id number]) Posture Evaluation Bart Postural Classification System [facility] Postural Classifications Posterior/Posterior Vertebral Compression Test 1 Lumbar Protective Mechanism Left AP 0 Lumbar Protective Mechanism Right AP 0 Lumbar Protective Mechanism Left PA 0 Lumbar Protective Mechanism Right PA 0 Comments Posture Comments stands L rot, R pelvic shear, R Ilica crest higher, L>R femoral IR, L>R tibial IR ( both w/squat also), equal greater troch PT-OP-K Range of Motion Start: 01/22/24 10:26 Freq: Status: Active Protocol: Document 01/22/24 11:08 [facility] (Rec: 01/22/24 14:31 [facility] [id number]) Hip Goniometric Range of Motion Hip Left Active Flexion w/Knee Flexed 132 Straight Leg Raise 90 Internal Rotation 47 External Rotation 19 Right Active Flexion w/Knee Flexed 114 Straight Leg Raise 90 Internal Rotation 42 External Rotation 18 Comments ant tightness w/flex PT-OP-L Special Tests Start: 01/22/24 10:26 Freq: Status: Active Protocol: Document 01/22/24 11:08 [facility] (Rec: 01/22/24 14:31 [facility] [id number]) Special Tests Lumbar Spine Special Tests LEFT Test Results R weakness signficant; L min weakness PT-OP-M Strength Start: 01/22/24 10:26 Freq: Status: Active Protocol: Document 01/22/24 11:08 [facility] (Rec: 01/22/24 14:31 [facility] [id number]) Hip Strength Hip Manual Muscle Testing Right Flexion (L2) 3+ Fair+ Extension (S1) 3+ Fair+ Abduction 3+ Fair+ Adduction 4 Good External Rotation 3+ Fair+ Internal Rotation 4+ Good+ Left Flexion (L2) 4 Good Extension (S1) 4- Good- Abduction 4+ Good+ Adduction 4+ Good+ External Rotation 4- Good- Internal Rotation 4 Good Knee Strength Knee Manual Muscle Testing Right Flexion (S2) 4+ Good+ Extension (L3) 5 Normal Left Flexion (S2) 5 Normal Extension (L3) 5 Normal Ankle/Foot Strength Ankle and Foot Manual Muscle Testing Right Dorsiflexion (L4) 5 Normal Plantarflexion (S1) 5 Normal Left Dorsiflexion (L4) 5 Normal Plantarflexion (S1) 5 Normal Comments heel raises PT-OP-Q Treatments Start: 01/22/24 10:26 Freq: Status: Active Protocol: Document 02/04/24 10:33 [facility] (Rec: 02/04/24 11:47 [facility] [id number]) Therapeutic Exercises Supine Exercises supine Supine Exercise Name 1. DL flex 2. diagonal B 3. ext B 4. flex B Side bilateral Reps/Minutes 1 min total w/quick position review Standing Exercises squat Side bilateral Reps/Minutes 8 Comments cues for knee position and tracking stretch Standing Exercise Name cues for back neutral and slow pull back Side right Reps/Minutes 30 sec lunge Equipment Used mirror, light contact counter as needed Reps/Minutes 10 reps Comments max cues for feet// with knees sidestep Standing Exercise Name in mini squat Side bilateral Equipment Used lvl 2 at knees Reps/Minutes 20ft Comments cues knees over ankles Manual Therapy Treatment Soft Tissue Mobilization abdomen Mobilization Type Sustained Pressure Intensity/Depth Moderate Body Position Hooklying Comments ligament of cleyat hip flexor Body Location R Mobilization Type Sustained Pressure Intensity/Depth Moderate Comments W/AAROm flex circumfrential Body Location R at hip jt Mobilization Type Sustained Pressure Intensity/Depth Moderate Comments w/hip flex, ER, abd ITB Body Location R Mobilization Type Rolling Intensity/Depth Moderate add Body Location R Mobilization Type Rolling Intensity/Depth Moderate Body Position Hooklying Comments w/ER, flex, abd Joint Mobilizations innominate Comments R ER FM ; R add FM hip Comments R add FM PT-OP-T Assessment and Plan Start: 01/22/24 10:26 Freq: Status: Active Protocol: Document 02/04/24 10:33 [facility] (Rec: 02/04/24 11:47 [facility] [id number]) Physical Therapy Assessment Goals balance Automatic Lathe Operator Goal (LTG) Pt will be able to do SLS at least 20 sec to demonstrate improved balnce LTG Duration 8/15 ROM Short Term Goal (STG) Pt iwll improve flex to equal to that of other side w/o feeling tight and improve ER by 10 deg STG Duration 7/ Automatic Lathe Operator Goal (LTG) Pt will be able to sit catrina cross and squat deep w/o feeling R hip tightness LTG Duration 8/15 strength Short Term Goal (STG) Pt will be indpe w/hEP STG Duration 7/2 Senior Living Goal (LTG) Pt will score at least 3/5 LPM and at least 4+/5 on BLE MMT in order to allow greater ease with daily tasks and dec instances of RLE giving out. LTG Duration 04/15 Assessment Summary Assessment pt had improved form w/squats an dlunges w/cues and use of mirror. She had significiant tightness and tenderness of hip flexors. Physical Therapy Plan Next Visit Focus/Plan Next Note Type Treatment Note Next Visit Plan review lunges and squats cont manual to improve R hip mobility; work on quad w/ Rectus femoris mobility
--- NOTE | 2024-02-13 12:00 | PT.OTN ---
Current Diagnoses Other symptoms and signs involving the musculoskeletal system (02/13/24) Physical Therapy Treatment Note PT-OP-A Visit Information Start: 01/22/24 10:26 Freq: Status: Active Protocol: Document 02/13/24 11:17 [facility] (Rec: 02/13/24 12:22 [facility] [id number]) Out-Patient Physical Therapy Visit Information Visit Information Visit Type Treatment Note Visit Note 02/08 Visit Start Time 11:17 Visit Stop Time 12:00 Visit Number 6 Number of ELEPHANT TAMER Visits 1 PT-OP-B Current Condition Start: 01/22/24 10:26 Freq: Status: Active Protocol: Document 01/22/24 11:08 [facility] (Rec: 01/22/24 14:31 [facility] [id number]) Current Condition History of Current Condition Onset Date a couple years Current Complaints RLE dec ROM and giving out History of Current Condition Pt reports sometimes r leg gives out (thigh/hip) and does have dec ROM. It can be on/ off. Happen not for months. She had pain mid oct and couldn't get in til November to see doctor. When it happens, its hard to walk downhill. [place] 4[place] and work outs at home doing resistance bands and free weights on the other days . The on and off pain has been a couple of years. She has had xrays of spine and back which didn't show much. 3-4x/ year this happens and lasts for a few weeks. Her is chiro that practices functional medicine an dhas done some work on her too. It can be stiff when first getting up. 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 She didn't have to see a doctor at the time. She was about 9 years old at the time. Pt reports occ back pain but not sure it is associated w/leg pain. She was just doing travelling and had R leg pain from buttocks to ankle when laying down and that happend a couple nights in a row and worked on her, and it resolved. Every now and then gets a leg ache there. Limited range into ER and can't sit catrina cross. When does yoga, has to sit on a block for catrina cross position. Se did do cross fit where she had some leg injuries or back twinges, but it was only enough for her to just need a couple rest days or take it easier in workouts for a week or so. Some point in 2021 is when she had her first giving out episode. Pt had PT for dizziness d/t vertigo and since then balance has never been as good as before. Treatment Goals Patient/Caregiver Goals increase range of motion of R leg, be able to sit catrina cross, squat fully w/o tightness PT-OP-C Subjective Start: 01/22/24 10:26 Freq: Status: Active Protocol: Document 02/13/24 11:17 [facility] (Rec: 02/13/24 12:22 [facility] [id number]) OP-PT Subjective Patient Comments Patient Comments Pt reports felt better after last, today R adductor and quad tight. She states using rolling pin to adductor. [place] but not hills dueto causes pain adductor descending. PT-OP-D Balance Start: 01/22/24 10:26 Freq: Status: Active Protocol: Document 01/22/24 11:08 [facility] (Rec: 01/22/24 14:31 [facility] [id number]) Balance Tests Single Limb Standing Single Limb- Right 9 sec inc deviation Single Limb- Left 12 sec PT-OP-E Functional Tests Start: 01/22/24 10:26 Freq: Status: Active Protocol: Document 01/22/24 11:08 [facility] (Rec: 01/22/24 14:31 [facility] [id number]) Functional Tests 30 Second Sit to Stand Test Score 12 Comments knee IR Five Times Sit to Stand Test Score 13 sec Squat Test Score can squat w/heels up but shifts slightly left and feels tight R hip Comments knee goes in on R PT-OP-G Mobility & Gait Start: 01/22/24 10:26 Freq: Status: Active Protocol: Document 01/22/24 11:08 [facility] (Rec: 01/22/24 14:31 [facility] [id number]) OP Gait Assessment Comments Gait Comments dec R>LLE push off and inc pelvis R rot w/push off; not straight trajectory w/fwd walk PT-OP-J Posture/Palpation/Skin Start: 01/22/24 10:26 Freq: Status: Active Protocol: Document 01/22/24 11:08 [facility] (Rec: 01/22/24 14:31 [facility] [id number]) Posture Evaluation Bart Postural Classification System Bart Postural Classifications Posterior/Posterior Vertebral Compression Test 1 Lumbar Protective Mechanism Left AP 0 Lumbar Protective Mechanism Right AP 0 Lumbar Protective Mechanism Left PA 0 Lumbar Protective Mechanism Right PA 0 Comments Posture Comments stands L rot, R pelvic shear, R Ilica crest higher, L>R femoral IR, L>R tibial IR ( both w/squat also), equal greater troch PT-OP-K Range of Motion Start: 01/22/24 10:26 Freq: Status: Active Protocol: Document 01/22/24 11:08 [facility] (Rec: 01/22/24 14:31 [facility] [id number]) Hip Goniometric Range of Motion Hip Left Active Flexion w/Knee Flexed 132 Straight Leg Raise 90 Internal Rotation 47 External Rotation 19 Right Active Flexion w/Knee Flexed 114 Straight Leg Raise 90 Internal Rotation 42 External Rotation 18 Comments ant tightness w/flex PT-OP-L Special Tests Start: 01/22/24 10:26 Freq: Status: Active Protocol: Document 01/22/24 11:08 [facility] (Rec: 01/22/24 14:31 [facility] [id number]) Special Tests Lumbar Spine Special Tests LEFT Test Results R weakness signficant; L min weakness PT-OP-M Strength Start: 01/22/24 10:26 Freq: Status: Active Protocol: Document 01/22/24 11:08 [facility] (Rec: 01/22/24 14:31 [facility] [id number]) Hip Strength Hip Manual Muscle Testing Right Flexion (L2) 3+ Fair+ Extension (S1) 3+ Fair+ Abduction 3+ Fair+ Adduction 4 Good External Rotation 3+ Fair+ Internal Rotation 4+ Good+ Left Flexion (L2) 4 Good Extension (S1) 4- Good- Abduction 4+ Good+ Adduction 4+ Good+ External Rotation 4- Good- Internal Rotation 4 Good Knee Strength Knee Manual Muscle Testing Right Flexion (S2) 4+ Good+ Extension (L3) 5 Normal Left Flexion (S2) 5 Normal Extension (L3) 5 Normal Ankle/Foot Strength Ankle and Foot Manual Muscle Testing Right Dorsiflexion (L4) 5 Normal Plantarflexion (S1) 5 Normal Left Dorsiflexion (L4) 5 Normal Plantarflexion (S1) 5 Normal Comments heel raises PT-OP-Q Treatments Start: 01/22/24 10:26 Freq: Status: Active Protocol: Document 02/13/24 11:17 [facility] (Rec: 02/13/24 12:22 [facility] [id number]) Therapeutic Exercises Supine Exercises Fig 4 Supine Exercise Name R ankle L inner thigh>over L thigh, L ankle over R thigh Side bilateral Equipment Used good stretch: adductor longus & add jairo end tx Reps/Minutes 30SH x2 Comments good adductor stretch after manual, able put R ankle over L leg Standing Exercises step fwd down/back up Standing Exercise Name trialed and added to HEP- declined HO Side bilateral Resistance R>L Equipment Used 6 step, initially HR then none Reps/Minutes several reps: stairs then step front mirror Comments cued feet fwd, knee lateral track with ankle con/ecc return- tiring Lat leg stretch Standing Exercise Name quad, flexor and little adductor Side right Equipment Used grasp ankle behind her Reps/Minutes 30 sec Comments cued knee toward floor and pelvis fwd lunge Equipment Used mirror, carpet seam assist alignment Reps/Minutes several reps Comments max cues for feet// with knees , hip ER midline with feet Manual Therapy Treatment Soft Tissue Mobilization circumfrential Body Location R at hip jt and upper thigh Mobilization Type Sustained Pressure Intensity/Depth Moderate Comments MWM: 1. Long axis MF /c hip ER 2. w/hip flex, ER, abd add Body Location R Mobilization Type Rolling Intensity/Depth Moderate Body Position Hooklying Comments w/long axis hip ER Joint Mobilizations hip Direction anteromedial glide Grade II Body Position Supine Reps/Duration 5 Comments strap, free the ball: R FM /c hip ER PT-OP-T Assessment and Plan Start: 01/22/24 10:26 Freq: Status: Active Protocol: Document 02/13/24 11:17 [facility] (Rec: 02/13/24 12:22 SP [id number]) Physical Therapy Assessment Goals balance Cloth Bleaching Range Tender Goal (LTG) Pt will be able to do SLS at least 20 sec to demonstrate improved balnce LTG Duration 8/15 ROM Short Term Goal (STG) Pt iwll improve flex to equal to that of other side w/o feeling tight and improve ER by 10 deg STG Duration 7/1 Halfway Goal (LTG) Pt will be able to sit catrina cross and squat deep w/o feeling R hip tightness LTG Duration 04/15 strength Short Term Goal (STG) Pt will be indpe w/hEP STG Duration 03/02 Cloth Bleaching Range Tender Goal (LTG) Pt will score at least 3/5 LPM and at least 4+/5 on BLE MMT in order to allow greater ease with daily tasks and dec instances of RLE giving out. LTG Duration 04/15 Assessment Summary Assessment Pt improved reduction R adductor tightness after manual, able to perform FIg 4 with R ankle over L leg. She reports lateral R LE musculture (glut med, peroneals) tiring effort performing correction wtih cuing R knee alignment lateral with foot improved form lunges and initiated step down fwd to assist ROM and strengthening to descend inclined at park without pain R inner thigh. Physical Therapy Plan Frequency and Duration Frequency of Treatment 1-2x/wk Duration of treatment (weeks) 12 Plan of Care Start Date 01/22/24 Plan of Care End Date 04/15/24 Therapeutic Interventions Therapeutic Interventions Balance Training,Gait Training ,Home Exercise Program,Joint Mobilizations,Manual Therapy, Neuromuscular Re-education, Self-Care/Home Management,Soft Tissue Mobilization,Taping, Therapeutic Activities, Therapeutic Exercises Modalities Cold Pack/Ice Massage,Electric Stimulation,Hot Packs, Infrared Therapy,Traction- Mechanical,Ultrasound Next Visit Focus/Plan Next Note Type Treatment Note Next Visit Plan Review lunges, step down and squats with knee/ankle alignment. POC: cont manual to improve R hip mobility; work on quad w/ Rectus femoris and adductor mobility
--- NOTE | 2024-02-20 16:35 | PT.OTN ---
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 It can be on/ off. Happen not for months. She had pain mid oct and couldn't get in til November to see doctor. When it happens, its hard to walk downhill. [place] walks [place] 4x[place] and work outs at home doing resistance bands and free weights on the other days . The on and off pain has been a couple of years. She has had xrays of spine and back which didn't show much. 3-4x/ year this happens and lasts for a few weeks. Her is chiro that practices functional medicine an dhas done some work on her too. It can be stiff when first getting up. Has massage and acupuncture but nothing has helped residential. 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 She didn't have to see a doctor at the time. She was about 9 years old at the time. Pt reports occ back pain but not sure it is associated w/leg pain. She was just doing travelling and had R leg pain from buttocks to ankle when laying down and that happend a couple nights in a row and worked on her, and it resolved. Every now and then gets a leg ache there. Limited range into ER and can't sit catrina cross. When does yoga, has to sit on a block for catrina cross position. Juan Carlos did do cross fit where she had some leg injuries or back twinges, but it was only enough for her to just need a couple rest days or take it easier in workouts for a week or so. Some point in 2021 is when she had her first giving out episode. Pt had PT for dizziness d/t vertigo and since then balance has never been as good as before. Treatment Goals Patient/Caregiver Goals increase range of motion of R leg, be able to sit catrina cross, squat fully w/o tightness PT-OP-C Subjective Start: 01/22/24 10:26 Freq: Status: Active Protocol: Document 02/20/24 13:19 AB (Rec: 02/20/24 16:34 AB [id number]) OP-PT Subjective Patient Comments Patient Comments Patient reports she is better, some of the physical therapy is getting easier, able to keep knees aligned with lunges , and has less bumps when using the rolling pin. Patient reports crossing right leg feels stiffness. 9 sec right LE left 2,4 seconds with ipsilateral trunk sidebend and femoral IR. PT-OP-D Balance Start: 01/22/24 10:26 Freq: Status: Active Protocol: Document 01/22/24 11:08 [facility] (Rec: 01/22/24 14:31 [facility] [id number]) Balance Tests Single Limb Standing Single Limb- Right 9 sec inc deviation Single Limb- Left 12 sec PT-OP-E Functional Tests Start: 01/22/24 10:26 Freq: Status: Active Protocol: Document 01/22/24 11:08 [facility] (Rec: 01/22/24 14:31 [facility] [id number]) Functional Tests 30 Second Sit to Stand Test Score 12 Comments knee IR Five Times Sit to Stand Test Score 13 sec Squat Test Score can squat w/heels up but shifts slightly left and feels tight R hip Comments knee goes in on R PT-OP-G Mobility & Gait Start: 01/22/24 10:26 Freq: Status: Active Protocol: Document 01/22/24 11:08 [facility] (Rec: 01/22/24 14:31 [facility] [id number]) OP Gait Assessment Comments Gait Comments dec R>LLE push off and inc pelvis R rot w/push off; not straight trajectory w/fwd walk PT-OP-J Posture/Palpation/Skin Start: 01/22/24 10:26 Freq: Status: Active Protocol: Document 01/22/24 11:08 [facility] (Rec: 01/22/24 14:31 [facility] [id number]) Posture Evaluation [facility] Postural Classification System Bart Postural Classifications Posterior/Posterior Vertebral Compression Test 1 Lumbar Protective Mechanism Left AP 0 Lumbar Protective Mechanism Right AP 0 Lumbar Protective Mechanism Left PA 0 Lumbar Protective Mechanism Right PA 0 Comments Posture Comments stands L rot, R pelvic shear, R Ilica crest higher, L>R femoral IR, L>R tibial IR ( both w/squat also), equal greater troch PT-OP-K Range of Motion Start: 01/22/24 10:26 Freq: Status: Active Protocol: Document 01/22/24 11:08 [facility] (Rec: 01/22/24 14:31 [facility] [id number]) Hip Goniometric Range of Motion Hip Left Active Flexion w/Knee Flexed 132 Straight Leg Raise 90 Internal Rotation 47 External Rotation 19 Right Active Flexion w/Knee Flexed 114 Straight Leg Raise 90 Internal Rotation 42 External Rotation 18 Comments ant tightness w/flex PT-OP-L Special Tests Start: 01/22/24 10:26 Freq: Status: Active Protocol: Document 01/22/24 11:08 [facility] (Rec: 01/22/24 14:31 [facility] [id number]) Special Tests Lumbar Spine Special Tests LEFT Test Results R weakness signficant; L min weakness PT-OP-M Strength Start: 01/22/24 10:26 Freq: Status: Active Protocol: Document 01/22/24 11:08 [facility] (Rec: 01/22/24 14:31 [facility] [id number]) Hip Strength Hip Manual Muscle Testing Right Flexion (L2) 3+ Fair+ Extension (S1) 3+ Fair+ Abduction 3+ Fair+ Adduction 4 Good External Rotation 3+ Fair+ Internal Rotation 4+ Good+ Left Flexion (L2) 4 Good Extension (S1) 4- Good- Abduction 4+ Good+ Adduction 4+ Good+ External Rotation 4- Good- Internal Rotation 4 Good Knee Strength Knee Manual Muscle Testing Right Flexion (S2) 4+ Good+ Extension (L3) 5 Normal Left Flexion (S2) 5 Normal Extension (L3) 5 Normal Ankle/Foot Strength Ankle and Foot Manual Muscle Testing Right Dorsiflexion (L4) 5 Normal Plantarflexion (S1) 5 Normal Left Dorsiflexion (L4) 5 Normal Plantarflexion (S1) 5 Normal Comments heel raises PT-OP-Q Treatments Start: 01/22/24 10:26 Freq: Status: Active Protocol: Document 02/20/24 13:19 AB (Rec: 02/20/24 16:34 AB [id number]) Therapeutic Exercises Supine Exercises modifed primitivo stretch Supine Exercise Name opp knee to chest HEP Side right Reps/Minutes 60 sec with X 10 knee flexion Comments verbal cues piriformis stretch Supine Exercise Name HEP Side right Reps/Minutes 60 sec X 1 Comments verbal and tactile cues Sitting Exercises seated hip abd with band Side bilateral Resistance level 3 band Reps/Minutes one min X 1 Standing Exercises lunge Side bilateral Reps/Minutes 8 feet X 6 Comments Verbal and visual cues/Pt ed self tactile cues for hip hinge sidestep Standing Exercise Name in mini squat Side bilateral Equipment Used lvl 1 and 2 at knees Reps/Minutes 12 feet X 3 ( lv 2 for 2 sets) Comments cues knees over ankles Manual Therapy Treatment Soft Tissue Mobilization hip flexor Body Location right Mobilization Type Cross-Friction,Rolling, Sustained Pressure Intensity/Depth Moderate Body Position Hooklying glute Body Location R Mobilization Type Cross-Friction,Rolling, Sustained Pressure Intensity/Depth Moderate Body Position Sidelying Comments w/hip IR/ER Manual Techniques MET for right AI and left PI and pubic shotgun Reps/Duration 6 X 6 seconds each PT-OP-T Assessment and Plan Start: 01/22/24 10:26 Freq: Status: Active Protocol: Document 02/20/24 13:19 AB (Rec: 02/20/24 16:34 AB [id number]) Physical Therapy Assessment Goals balance Nursing Home Goal (LTG) Pt will be able to do SLS at least 20 sec to demonstrate improved balnce LTG Duration 8/15 ROM Short Term Goal (STG) Pt iwll improve flex to equal to that of other side w/o feeling tight and improve ER by 10 deg STG Duration 7/1 Ward Maid Goal (LTG) Pt will be able to sit catrina cross and squat deep w/o feeling R hip tightness LTG Duration 8/15 strength Short Term Goal (STG) Pt will be indpe w/hEP STG Duration 7/2 Ward Maid Goal (LTG) Pt will score at least 3/5 LPM and at least 4+/5 on BLE MMT in order to allow greater ease with daily tasks and dec instances of RLE giving out. LTG Duration 04/15 Assessment Summary Assessment Patient report feeling proof sorter end of session. Patient able to perform lunge with a less quad dominant pattern, but depth and length limited by pain right knee. Physical Therapy Plan Frequency and Duration Frequency of Treatment 1-2x/wk Duration of treatment (weeks) 12 Plan of Care Start Date 01/22/24 Plan of Care End Date 04/15/24 Next Visit Focus/Plan Next Note Type Treatment Note Next Visit Plan Review lunges, step down and squats with knee/ankle alignment. POC: cont manual to improve R hip mobility; work on quad w/ Rectus femoris and adductor mobility
--- NOTE | 2024-02-26 12:21 | PT.OTN ---
Current Diagnoses Other symptoms and signs involving the musculoskeletal system (02/26/24) Physical Therapy Treatment Note PT-OP-A Visit Information Start: 01/22/24 10:26 Freq: Status: Active Protocol: Document 02/26/24 07:29 [facility] (Rec: 02/26/24 12:21 [facility] [id number]) Out-Patient Physical Therapy Visit Information Visit Information Visit Type Progress Note Visit Note 09/10 Access Code: [email or web address] Visit Start Time 07:32 Visit Stop Time 08:15 Visit Number 8 Number of PROTEIN SCIENTIST Visits 0 PT-OP-B Current Condition Start: 01/22/24 10:26 Freq: Status: Active Protocol: Document 01/22/24 11:08 [facility] (Rec: 01/22/24 14:31 [facility] [id number]) Current Condition History of Current Condition Onset Date a couple years Current Complaints RLE dec ROM and giving out History of Current Condition Pt reports sometimes r leg gives out (thigh/hip) and does have dec ROM. It can be on/ off. Happen not for months. She had pain mid oct and couldn't get in til November to see doctor. When it happens, its hard to walk downhill. [place] 4x[place] and work outs at home doing resistance bands and free weights on the other days . The on and off pain has been a couple of years. She has had xrays of spine and back which didn't show much. 3-4x/ year this happens and lasts for a few weeks. Her is chiro that practices functional medicine an dhas done some work on her too. It can be stiff when first getting up. 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 She didn't have to see a doctor at the time. She was about 9 years old at the time. Pt reports occ back pain but not sure it is associated w/leg pain. She was just doing travelling and had R leg pain from buttocks to ankle when laying down and that happend a couple nights in a row and worked on her, and it resolved. Every now and then gets a leg ache there. Limited range into ER and can't sit catrina cross. When does yoga, has to sit on a block for catrina cross position. Juan Carlos did do cross fit where she had some leg injuries or back twinges, but it was only enough for her to just need a couple rest days or take it easier in workouts for a week or so. Some point in 2021 is when she had her first giving out episode. Pt had PT for dizziness d/t vertigo and since then balance has never been as good as before. Treatment Goals Patient/Caregiver Goals increase range of motion of R leg, be able to sit catrina cross, squat fully w/o tightness PT-OP-C Subjective Start: 01/22/24 10:26 Freq: Status: Active Protocol: Document 02/26/24 07:29 [facility] (Rec: 02/26/24 12:21 [facility] [id number]) OP-PT Subjective Patient Comments Patient Comments Pt reports doing pretty good until yesterday until she tweaked her knee. She doesn't remember doing things. She has been climbing ontop of the house and cleaning solar panels etc. Yesterday AM, she was doing her PT and as feeling knee w/piriforms stretch then felt it in walk. did work on it a litle . knee issues not normal PT-OP-D Balance Start: 01/22/24 10:26 Freq: Status: Active Protocol: Document 01/22/24 11:08 [facility] (Rec: 01/22/24 14:31 [facility] [id number]) Balance Tests Single Limb Standing Single Limb- Right 9 sec inc deviation Single Limb- Left 12 sec PT-OP-E Functional Tests Start: 01/22/24 10:26 Freq: Status: Active Protocol: Document 01/22/24 11:08 [facility] (Rec: 01/22/24 14:31 [facility] [id number]) Functional Tests 30 Second Sit to Stand Test Score 12 Comments knee IR Five Times Sit to Stand Test Score 13 sec Squat Test Score can squat w/heels up but shifts slightly left and feels tight R hip Comments knee goes in on R PT-OP-G Mobility & Gait Start: 01/22/24 10:26 Freq: Status: Active Protocol: Document 01/22/24 11:08 [facility] (Rec: 01/22/24 14:31 [facility] [id number]) OP Gait Assessment Comments Gait Comments dec R>LLE push off and inc pelvis R rot w/push off; not straight trajectory w/fwd walk PT-OP-J Posture/Palpation/Skin Start: 01/22/24 10:26 Freq: Status: Active Protocol: Document 02/26/24 07:29 [facility] (Rec: 02/26/24 12:21 [facility] [id number]) Posture Evaluation [facility] Postural Classification System Bart Postural Classifications Posterior/Posterior Vertical Compression Test 3 Lumbar Protective Mechanism Left AP 1 Lumbar Protective Mechanism Right AP 1 Lumbar Protective Mechanism Left PA 4 Lumbar Protective Mechanism Right PA 2 PT-OP-K Range of Motion Start: 01/22/24 10:26 Freq: Status: Active Protocol: Document 02/26/24 07:29 [facility] (Rec: 02/26/24 12:21 [facility] [id number]) Hip Goniometric Range of Motion Hip Left Active Flexion w/Knee Flexed 135 Right Active Flexion w/Knee Flexed 134 External Rotation 24 PT-OP-L Special Tests Start: 01/22/24 10:26 Freq: Status: Active Protocol: Document 01/22/24 11:08 [facility] (Rec: 01/22/24 14:31 [facility] [id number]) Special Tests Lumbar Spine Special Tests LEFT Test Results R weakness signficant; L min weakness PT-OP-M Strength Start: 01/22/24 10:26 Freq: Status: Active Protocol: Document 02/26/24 07:29 [facility] (Rec: 02/26/24 12:21 [facility] [id number]) Hip Strength Hip Manual Muscle Testing Right Flexion (L2) 3+ Fair+ Extension (S1) 4- Good- Abduction 4+ Good+ Adduction 4+ Good+ External Rotation 5 Normal Internal Rotation 4 Good Comments pain IR Left Flexion (L2) 4- Good- Extension (S1) 5 Normal Abduction 5 Normal Adduction 5 Normal External Rotation 5 Normal Internal Rotation 5 Normal Knee Strength Knee Manual Muscle Testing Right Flexion (S2) 5 Normal Extension (L3) 5 Normal Left Flexion (S2) 5 Normal Extension (L3) 5 Normal PT-OP-Q Treatments Start: 01/22/24 10:26 Freq: Status: Active Protocol: Document 02/26/24 07:29 [facility] (Rec: 02/26/24 12:21 [facility] [id number]) Therapeutic Exercises Supine Exercises modifed primitivo stretch Supine Exercise Name opp knee to chest HEP Side right Reps/Minutes review 20 sec piriformis stretch Side right Reps/Minutes 30 sec Comments review w/hold of thigh vs knee Other Exercises ROM Other Exercise Name hip and knee Side right isometrics Other Exercise Name B LE MMT; LPM, VCT Manual Therapy Treatment Soft Tissue Mobilization quad Body Location R Rectus femoris, sartorius Mobilization Type Rolling,Strumming Intensity/Depth Moderate Joint Mobilizations knee Joint R AP tibia FM Grade II hip Joint free the ball ER FM Grade II PT-OP-T Assessment and Plan Start: 01/22/24 10:26 Freq: Status: Active Protocol: Document 02/26/24 07:29 [facility] (Rec: 02/26/24 12:21 [facility] [id number]) Physical Therapy Assessment Goals balance Retirement Goal (LTG) Pt will be able to do SLS at least 20 sec to demonstrate improved balance 02/25-17 sec R; >30 sec L LTG Duration 04/15 ROM Short Term Goal (STG) Pt iwll improve flex to equal to that of other side w/o feeling tight and improve ER by 10 deg 02/25-flex achieved; ER improved small STG Duration 03/01 American Sign Language Interpreter Goal (LTG) Pt will be able to sit catrina cross and squat deep w/o feeling R hip tightness 02/25-knee tightness limiting today so not fully tested LTG Duration 04/15 strength Short Term Goal (STG) Pt will be indpe w/hEP STG Duration achieved advancing as able American Sign Language Interpreter Goal (LTG) Pt will score at least 3/5 LPM and at least 4+/5 on BLE MMT in order to allow greater ease with daily tasks and dec instances of RLE giving out. 02/25-improved LTG Duration 04/15 Assessment Summary Assessment Improved knee ext w/dec pain after manual. PT noted to pt that knee was swollen and pt to monitor this and continue to ice and avoid painful activities. positive w/ Poonam test and twisting inc pain so possible meniscal injury based on location of pain at med jt line. She is making good progress w/ strength and ROM of hip. Some limits d/t recent knee irritation w/back tracked progress of R hip. Cont PT to work on RLE mobility and strength Physical Therapy Plan Frequency and Duration Frequency of Treatment 1-2x/wk Duration of treatment (weeks) 12 Plan of Care Start Date 01/22/24 Plan of Care End Date 04/15/24 Therapeutic Interventions Therapeutic Interventions Balance Training,Gait Training ,Home Exercise Program,Joint Mobilizations,Manual Therapy, Neuromuscular Re-education, Self-Care/Home Management,Soft Tissue Mobilization,Taping, Therapeutic Activities, Therapeutic Exercises Modalities Cold Pack/Ice Massage,Electric Stimulation,Hot Packs, Infrared Therapy,Traction- Mechanical,Ultrasound Next Visit Focus/Plan Next Note Type Treatment Note Next Visit Plan assess mobility into ER. cont to work on hip stability -give ext work
--- NOTE | 2024-03-03 13:08 | PT.OTN ---
Current Diagnoses Other symptoms and signs involving the musculoskeletal system (03/03/24) Physical Therapy Treatment Note PT-OP-A Visit Information Start: 01/22/24 10:26 Freq: Status: Active Protocol: Document 03/03/24 07:31 [facility] (Rec: 03/03/24 18:10 [facility] [id number]) Out-Patient Physical Therapy Visit Information Visit Information Visit Type Treatment Note Visit Note 10/11 Visit Start Time 07:32 Visit Stop Time 08:17 Visit Number 9 Number of RISK ADVISOR Visits 0 PT-OP-B Current Condition Start: 01/22/24 10:26 Freq: Status: Active Protocol: Document 01/22/24 11:08 [facility] (Rec: 01/22/24 14:31 [facility] [id number]) Current Condition History of Current Condition Onset Date a couple years Current Complaints RLE dec ROM and giving out History of Current Condition Pt reports sometimes r leg gives out (thigh/hip) and does have dec ROM. It can be on/ off. Happen not for months. She had pain mid oct and couldn't get in til November to see doctor. When it happens, its hard to walk downhill. [place] walks [place] 4x[place] and work outs at home doing resistance bands and free weights on the other days . The on and off pain has been a couple of years. She has had xrays of spine and back which didn't show much. 3-4x/ year this happens and lasts for a few weeks. Her is chiro that practices functional medicine an dhas done some work on her too. It can be stiff when first getting up. 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 She didn't have to see a doctor at the time. She was about 9 years old at the time. Pt reports occ back pain but not sure it is associated w/leg pain. She was just doing travelling and had R leg pain from buttocks to ankle when laying down and that happend a couple nights in a row and worked on her, and it resolved. Every now and then gets a leg ache there. Limited range into ER and can't sit catrina cross. When does yoga, has to sit on a block for catrina cross position. Seh did do cross fit where she had some leg injuries or back twinges, but it was only enough for her to just need a couple rest days or take it easier in workouts for a week or so. Some point in 2021 is when she had her first giving out episode. Pt had PT for dizziness d/t vertigo and since then balance has never been as good as before. Treatment Goals Patient/Caregiver Goals increase range of motion of R leg, be able to sit catrina cross, squat fully w/o tightness PT-OP-C Subjective Start: 01/22/24 10:26 Freq: Status: Active Protocol: Document 03/03/24 07:31 [facility] (Rec: 03/03/24 18:10 [facility] [id number]) OP-PT Subjective Patient Comments Patient Comments Knee was sore for about a day in a half in knee after last session. just this Am, she started noticing some of her symptoms on R thigh. Played pickleball the past 3 days PT-OP-D Balance Start: 01/22/24 10:26 Freq: Status: Active Protocol: Document 01/22/24 11:08 [facility] (Rec: 01/22/24 14:31 [facility] [id number]) Balance Tests Single Limb Standing Single Limb- Right 9 sec inc deviation Single Limb- Left 12 sec PT-OP-E Functional Tests Start: 01/22/24 10:26 Freq: Status: Active Protocol: Document 01/22/24 11:08 [facility] (Rec: 01/22/24 14:31 [facility] [id number]) Functional Tests 30 Second Sit to Stand Test Score 12 Comments knee IR Five Times Sit to Stand Test Score 13 sec Squat Test Score can squat w/heels up but shifts slightly left and feels tight R hip Comments knee goes in on R PT-OP-G Mobility & Gait Start: 01/22/24 10:26 Freq: Status: Active Protocol: Document 01/22/24 11:08 [facility] (Rec: 01/22/24 14:31 [facility] [id number]) OP Gait Assessment Comments Gait Comments dec R>LLE push off and inc pelvis R rot w/push off; not straight trajectory w/fwd walk PT-OP-J Posture/Palpation/Skin Start: 01/22/24 10:26 Freq: Status: Active Protocol: Document 02/26/24 07:29 [facility] (Rec: 02/26/24 12:21 [facility] [id number]) Posture Evaluation Bart Postural Classification System Bart Postural Classifications Posterior/Posterior Vertical Compression Test 3 Lumbar Protective Mechanism Left AP 1 Lumbar Protective Mechanism Right AP 1 Lumbar Protective Mechanism Left PA 4 Lumbar Protective Mechanism Right PA 2 PT-OP-K Range of Motion Start: 01/22/24 10:26 Freq: Status: Active Protocol: Document 02/26/24 07:29 [facility] (Rec: 02/26/24 12:21 [facility] [id number]) Hip Goniometric Range of Motion Hip Left Active Flexion w/Knee Flexed 135 Right Active Flexion w/Knee Flexed 134 External Rotation 24 PT-OP-L Special Tests Start: 01/22/24 10:26 Freq: Status: Active Protocol: Document 01/22/24 11:08 [facility] (Rec: 01/22/24 14:31 [facility] [id number]) Special Tests Lumbar Spine Special Tests LEFT Test Results R weakness signficant; L min weakness PT-OP-M Strength Start: 01/22/24 10:26 Freq: Status: Active Protocol: Document 02/26/24 07:29 [facility] (Rec: 02/26/24 12:21 [facility] [id number]) Hip Strength Hip Manual Muscle Testing Right Flexion (L2) 3+ Fair+ Extension (S1) 4- Good- Abduction 4+ Good+ Adduction 4+ Good+ External Rotation 5 Normal Internal Rotation 4 Good Comments pain IR Left Flexion (L2) 4- Good- Extension (S1) 5 Normal Abduction 5 Normal Adduction 5 Normal External Rotation 5 Normal Internal Rotation 5 Normal Knee Strength Knee Manual Muscle Testing Right Flexion (S2) 5 Normal Extension (L3) 5 Normal Left Flexion (S2) 5 Normal Extension (L3) 5 Normal PT-OP-Q Treatments Start: 01/22/24 10:26 Freq: Status: Active Protocol: Document 03/03/24 07:31 [facility] (Rec: 03/03/24 18:10 [facility] [id number]) Manual Therapy Treatment Consent Patient gave verbal consent for manual Yes treatment Soft Tissue Mobilization abdomen Comments 1.ant pariatel peritoneum/TA fasica and fascia along small intensine w/LTR 2. ligament of cleyet w/LTR 3. fascia along transverse and ascending colon hip flexor Body Location right Mobilization Type Cross-Friction,Rolling, Sustained Pressure Intensity/Depth Moderate Body Position Hooklying add Body Location R Mobilization Type Rolling Intensity/Depth Moderate Body Position Hooklying Comments w/hip ER Joint Mobilizations innominate Comments r flex FM hip Joint R free the ball ER and inf [facility] FM PT-OP-T Assessment and Plan Start: 01/22/24 10:26 Freq: Status: Active Protocol: Document 03/03/24 07:31 [facility] (Rec: 03/03/24 18:10 [facility] [id number]) Physical Therapy Assessment Goals balance [facility] Goal (LTG) Pt will be able to do SLS at least 20 sec to demonstrate improved balance 02/25-17 sec R; >30 sec L LTG Duration 04/15 ROM Short Term Goal (STG) Pt iwll improve flex to equal to that of other side w/o feeling tight and improve ER by 10 deg 02/25-flex achieved; ER improved small STG Duration 03/01 [facility] Goal (LTG) Pt will be able to sit catrina cross and squat deep w/o feeling R hip tightness 02/25-knee tightness limiting today so not fully tested LTG Duration 04/15 strength Short Term Goal (STG) Pt will be indpe w/hEP STG Duration achieved 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 02/25-improved LTG Duration 04/15 Assessment Summary Assessment Pt reports feeling more loose after manual treatment today. She had ant hip impingement symptoms today that did improve w/manual care and improved R hip flex and ER ROM w/much dec in pain. This was likely affecting pt inc discomofrt into ant thigh today. Physical Therapy Plan Frequency and Duration Frequency of Treatment 1-2x/wk Duration of treatment (weeks) 12 Plan of Care Start Date 01/22/24 Plan of Care End Date 04/15/24 Next Visit Focus/Plan Next Note Type Treatment Note Next Visit Plan give ext exercises for hip; work on R abdominal mobility
--- NOTE | 2024-03-10 15:23 | PT.OTN ---
Current Diagnoses Other symptoms and signs involving the musculoskeletal system (03/10/24) Physical Therapy Treatment Note PT-OP-A Visit Information Start: 01/22/24 10:26 Freq: Status: Active Protocol: Document 03/10/24 15:07 [facility] (Rec: 03/10/24 15:22 [facility] [id number]) Out-Patient Physical Therapy Visit Information Visit Information Visit Type Treatment Note Visit Note 11/08 Visit Start Time 13:50 Visit Stop Time 14:30 Visit Number 10 Number of CAREER SERVICES DIRECTOR Visits 0 PT-OP-B Current Condition Start: 01/22/24 10:26 Freq: Status: Active Protocol: Document 01/22/24 11:08 [facility] (Rec: 01/22/24 14:31 [facility] [id number]) Current Condition History of Current Condition Onset Date a couple years Current Complaints RLE dec ROM and giving out History of Current Condition Pt reports sometimes r leg gives out (thigh/hip) and does have dec ROM. It can be on/ off. Happen not for months. She had pain mid oct and couldn't get in til November to see doctor. When it happens, its hard to walk downhill. [place] 4x[place] and work outs at home doing resistance bands and free weights on the other days . The on and off pain has been a couple of years. She has had xrays of spine and back which didn't show much. 3-4x/ year this happens and lasts for a few weeks. Her is chiro that practices functional medicine an dhas done some work on her too. It can be stiff when first getting up. 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 She didn't have to see a doctor at the time. She was about 9 years old at the time. Pt reports occ back pain but not sure it is associated w/leg pain. She was just doing travelling and had R leg pain from buttocks to ankle when laying down and that happend a couple nights in a row and worked on her, and it resolved. Every now and then gets a leg ache there. Limited range into ER and can't sit catrina cross. When does yoga, has to sit on a block for catrina cross position. Seh did do cross fit where she had some leg injuries or back twinges, but it was only enough for her to just need a couple rest days or take it easier in workouts for a week or so. Some point in 2021 is when she had her first giving out episode. Pt had PT for dizziness d/t vertigo and since then balance has never been as good as before. Treatment Goals Patient/Caregiver Goals increase range of motion of R leg, be able to sit catrina cross, squat fully w/o tightness PT-OP-C Subjective Start: 01/22/24 10:26 Freq: Status: Active Protocol: Document 03/10/24 15:07 [facility] (Rec: 03/10/24 15:22 [facility] [id number]) OP-PT Subjective Patient Comments Patient Comments Pt reports thigh pain didn't get worse after last session. Notes has to be carefulw /some exercises d/t knee pain PT-OP-D Balance Start: 01/22/24 10:26 Freq: Status: Active Protocol: Document 01/22/24 11:08 [facility] (Rec: 01/22/24 14:31 [facility] [id number]) Balance Tests Single Limb Standing Single Limb- Right 9 sec inc deviation Single Limb- Left 12 sec PT-OP-E Functional Tests Start: 01/22/24 10:26 Freq: Status: Active Protocol: Document 01/22/24 11:08 [facility] (Rec: 01/22/24 14:31 [facility] [id number]) Functional Tests 30 Second Sit to Stand Test Score 12 Comments knee IR Five Times Sit to Stand Test Score 13 sec Squat Test Score can squat w/heels up but shifts slightly left and feels tight R hip Comments knee goes in on R PT-OP-G Mobility & Gait Start: 01/22/24 10:26 Freq: Status: Active Protocol: Document 01/22/24 11:08 [facility] (Rec: 01/22/24 14:31 [facility] [id number]) OP Gait Assessment Comments Gait Comments dec R>LLE push off and inc pelvis R rot w/push off; not straight trajectory w/fwd walk PT-OP-J Posture/Palpation/Skin Start: 01/22/24 10:26 Freq: Status: Active Protocol: Document 02/26/24 07:29 [facility] (Rec: 02/26/24 12:21 [facility] [id number]) Posture Evaluation [facility] Postural Classification System Bart Postural Classifications Posterior/Posterior Vertical Compression Test 3 Lumbar Protective Mechanism Left AP 1 Lumbar Protective Mechanism Right AP 1 Lumbar Protective Mechanism Left PA 4 Lumbar Protective Mechanism Right PA 2 PT-OP-K Range of Motion Start: 01/22/24 10:26 Freq: Status: Active Protocol: Document 02/26/24 07:29 [facility] (Rec: 02/26/24 12:21 [facility] [id number]) Hip Goniometric Range of Motion Hip Left Active Flexion w/Knee Flexed 135 Right Active Flexion w/Knee Flexed 134 External Rotation 24 PT-OP-L Special Tests Start: 01/22/24 10:26 Freq: Status: Active Protocol: Document 01/22/24 11:08 [facility] (Rec: 01/22/24 14:31 [facility] [id number]) Special Tests Lumbar Spine Special Tests LEFT Test Results R weakness signficant; L min weakness PT-OP-M Strength Start: 01/22/24 10:26 Freq: Status: Active Protocol: Document 02/26/24 07:29 [facility] (Rec: 02/26/24 12:21 [facility] [id number]) Hip Strength Hip Manual Muscle Testing Right Flexion (L2) 3+ Fair+ Extension (S1) 4- Good- Abduction 4+ Good+ Adduction 4+ Good+ External Rotation 5 Normal Internal Rotation 4 Good Comments pain IR Left Flexion (L2) 4- Good- Extension (S1) 5 Normal Abduction 5 Normal Adduction 5 Normal External Rotation 5 Normal Internal Rotation 5 Normal Knee Strength Knee Manual Muscle Testing Right Flexion (S2) 5 Normal Extension (L3) 5 Normal Left Flexion (S2) 5 Normal Extension (L3) 5 Normal PT-OP-Q Treatments Start: 01/22/24 10:26 Freq: Status: Active Protocol: Document 03/10/24 15:07 [facility] (Rec: 03/10/24 15:22 [facility] [id number]) Manual Therapy Treatment Consent Patient gave verbal consent for manual Yes treatment Soft Tissue Mobilization hip flexor Body Location R insertion of iliopsoas and inguinal ligament Mobilization Type Cross-Friction,Rolling, Sustained Pressure Intensity/Depth Moderate Body Position Hooklying Joint Mobilizations innominate Comments R flex and ER hooklying , R abd and ext s/l FM Neuro Re-Education Treatment Movement Re-Education Movement Re-education Activities 15 min total: 2x8 mini walk lunges working on R hip not shearing R when fwd-use of mirror 2. hip hikes R for R wt acceptace [id number] neutral spine 3. 2x10 wt shifts fwd into RLE in mirror focus on wt accpetance. PT-OP-T Assessment and Plan Start: 01/22/24 10:26 Freq: Status: Active Protocol: Document 03/10/24 15:07 [facility] (Rec: 03/10/24 15:22 [facility] [id number]) Physical Therapy Assessment Goals balance [employer] Goal (LTG) Pt will be able to do SLS at least 20 sec to demonstrate improved balance 02/25-17 sec R; >30 sec L LTG Duration 04/15 ROM Short Term Goal (STG) Pt iwll improve flex to equal to that of other side w/o feeling tight and improve ER by 10 deg 02/25-flex achieved; ER improved small STG Duration 03/01 [employer] Goal (LTG) Pt will be able to sit catrina cross and squat deep w/o feeling R hip tightness 02/25-knee tightness limiting today so not fully tested LTG Duration 04/15 strength Short Term Goal (STG) Pt will be indpe w/hEP STG Duration achieved advancing as able [employer] Goal (LTG) Pt will score at least 3/5 LPM and at least 4+/5 on BLE MMT in order to allow greater ease with daily tasks and dec instances of RLE giving out. 02/25-improved LTG Duration 04/15 Assessment Summary Assessment Pt had much improved ROM after manual to improved flex of R hip and improved figure 4 position w/dec pain and SB of trunk R. Also, pt able to did in catrina cross sit after manual. Significantly dec RLE wt acceptance in standing w/ max cues w/lunges and even wt shifts to RLE. Physical Therapy Plan Frequency and Duration Frequency of Treatment 1-2x/wk Duration of treatment (weeks) 12 Plan of Care Start Date 01/22/24 Plan of Care End Date 04/15/24 Next Visit Focus/Plan Next Note Type Treatment Note Next Visit Plan work on hip ext, cont to work on R wt acceptance and R hip position in lunges (lat shear noted); cont to advance R hip manual for ROM and manual
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
--- NOTE | 2024-03-30 12:19 | PT.OTN ---
Current Diagnoses Other symptoms and signs involving the musculoskeletal system (03/30/24) Physical Therapy Treatment Note PT-OP-A Visit Information Start: 01/22/24 10:26 Freq: Status: Active Protocol: Document 03/30/24 11:19 [facility] (Rec: 03/30/24 12:19 [facility] [id number]) Out-Patient Physical Therapy Visit Information Visit Information Visit Type Progress Note Visit Note 09/10 Visit Start Time 11:18 Visit Stop Time 12:00 Visit Number 12 Number of BAKER TEST Visits 0 PT-OP-B Current Condition Start: 01/22/24 10:26 Freq: Status: Active Protocol: Document 01/22/24 11:08 [facility] (Rec: 01/22/24 14:31 [facility] [id number]) Current Condition History of Current Condition Onset Date a couple years Current Complaints RLE dec ROM and giving out History of Current Condition Pt reports sometimes r leg gives out (thigh/hip) and does have dec ROM. It can be on/ off. Happen not for months. She had pain mid oct and couldn't get in til November to see doctor. When it happens, its hard to walk downhill. [place] 4x[place] and work outs at home doing resistance bands and free weights on the other days . The on and off pain has been a couple of years. She has had xrays of spine and back which didn't show much. 3-4x/ year this happens and lasts for a few weeks. Her is chiro that practices functional medicine an dhas done some work on her too. It can be stiff when first getting up. 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 She didn't have to see a doctor at the time. She was about 9 years old at the time. Pt reports occ back pain but not sure it is associated w/leg pain. She was just doing travelling and had R leg pain from buttocks to ankle when laying down and that happend a couple nights in a row and worked on her, and it resolved. Every now and then gets a leg ache there. Limited range into ER and can't sit catrina cross. When does yoga, has to sit on a block for catrina cross position. Seh did do cross fit where she had some leg injuries or back twinges, but it was only enough for her to just need a couple rest days or take it easier in workouts for a week or so. Some point in 2021 is when she had her first giving out episode. Pt had PT for dizziness d/t vertigo and since then balance has never been as good as before. Treatment Goals Patient/Caregiver Goals increase range of motion of R leg, be able to sit catrina cross, squat fully w/o tightness PT-OP-C Subjective Start: 01/22/24 10:26 Freq: Status: Active Protocol: Document 03/30/24 11:19 [facility] (Rec: 03/30/24 12:19 [facility] [id number]) OP-PT Subjective Patient Comments Patient Comments Has some questions on new exercises. Reports when in bed the other night, she had some pain in groin and post lat R hip. She was able to reposition herself PT-OP-D Balance Start: 01/22/24 10:26 Freq: Status: Active Protocol: Document 01/22/24 11:08 [facility] (Rec: 01/22/24 14:31 [facility] [id number]) Balance Tests Single Limb Standing Single Limb- Right 9 sec inc deviation Single Limb- Left 12 sec PT-OP-E Functional Tests Start: 01/22/24 10:26 Freq: Status: Active Protocol: Document 01/22/24 11:08 [facility] (Rec: 01/22/24 14:31 [facility] [id number]) Functional Tests 30 Second Sit to Stand Test Score 12 Comments knee IR Five Times Sit to Stand Test Score 13 sec Squat Test Score can squat w/heels up but shifts slightly left and feels tight R hip Comments knee goes in on R PT-OP-G Mobility & Gait Start: 01/22/24 10:26 Freq: Status: Active Protocol: Document 01/22/24 11:08 [facility] (Rec: 01/22/24 14:31 [facility] [id number]) OP Gait Assessment Comments Gait Comments dec R>LLE push off and inc pelvis R rot w/push off; not straight trajectory w/fwd walk PT-OP-J Posture/Palpation/Skin Start: 01/22/24 10:26 Freq: Status: Active Protocol: Document 03/30/24 11:19 [facility] (Rec: 03/30/24 12:19 [facility] [id number]) Posture Evaluation [facility] Postural Classification System Lumbar Protective Mechanism Left AP 2 Lumbar Protective Mechanism Right AP 2 Lumbar Protective Mechanism Left PA 2 Lumbar Protective Mechanism Right PA 2 PT-OP-K Range of Motion Start: 01/22/24 10:26 Freq: Status: Active Protocol: Document 03/30/24 11:19 [facility] (Rec: 03/30/24 12:19 [facility] [id number]) Hip Goniometric Range of Motion Hip Right Active External Rotation 32 PT-OP-L Special Tests Start: 01/22/24 10:26 Freq: Status: Active Protocol: Document 01/22/24 11:08 [facility] (Rec: 01/22/24 14:31 [facility] [id number]) Special Tests Lumbar Spine Special Tests LEFT Test Results R weakness signficant; L min weakness PT-OP-M Strength Start: 01/22/24 10:26 Freq: Status: Active Protocol: Document 03/30/24 11:19 [facility] (Rec: 03/30/24 12:19 [facility] [id number]) Hip Strength Hip Manual Muscle Testing Right Flexion (L2) 4 Good Extension (S1) 4 Good Abduction 4- Good- Adduction 5 Normal External Rotation 4+ Good+ Internal Rotation 5 Normal Left Flexion (L2) 4+ Good+ Extension (S1) 5 Normal Abduction 5 Normal Adduction 5 Normal External Rotation 5 Normal Internal Rotation 5 Normal Knee Strength Knee Manual Muscle Testing Right Flexion (S2) 5 Normal Extension (L3) 5 Normal Left Flexion (S2) 5 Normal Extension (L3) 5 Normal Ankle/Foot Strength Ankle and Foot Manual Muscle Testing Right Dorsiflexion (L4) 5 Normal Plantarflexion (S1) 5 Normal Left Dorsiflexion (L4) 5 Normal Plantarflexion (S1) 5 Normal Comments heel raises PT-OP-Q Treatments Start: 01/22/24 10:26 Freq: Status: Active Protocol: Document 03/30/24 11:19 [facility] (Rec: 03/30/24 12:19 [facility] [id number]) Therapeutic Exercises Other Exercises isometrics Other Exercise Name B LE MMT; LPM, VCT Reps/Minutes 7 min Gait Training Gait Activity resisted gait Device Used Vacation Your Way w/PT Distance/Duration 2x50ft Treatment Focus push off RLE wt shifts Comments wt shifts into RLE focus in mirror w/focus w/full wt shift fwd lean in DL w/straight back for wt shift thru feet 2x10 wakling in mirror w/wt shifts focus on push off 20ft x8 progressed to SLS for wt acceptances in mirror w/cues for R hip under her gait at wall Comments 5secx8 B w/max cues fo rno rot and neutral spine and R kene ext w/RLE post dep Manual Therapy Treatment Joint Mobilizations foot/ankle Comments distraction of talus, med glide and AP sup fibular glide med glide cuneiform 1-2 PT-OP-T Assessment and Plan Start: 01/22/24 10:26 Freq: Status: Active Protocol: Document 03/30/24 11:19 [facility] (Rec: 03/30/24 12:19 [facility] [id number]) Physical Therapy Assessment Goals balance Foxing Painter Goal (LTG) Pt will be able to do SLS at least 20 sec to demonstrate improved balance 02/25-17 sec R; >30 sec L LTG Duration achieved to 27 sec R, >30 sec L but pelvis drops ROM Short Term Goal (STG) Pt iwll improve flex to equal to that of other side w/o feeling tight and improve ER by 10 deg 02/25-flex achieved; ER improved small STG Duration achieved 03/30 Assisted Goal (LTG) Pt will be able to sit catrina cross and squat deep w/o feeling R hip tightness 02/25-knee tightness limiting today so not fully tested 03/30-pull in thigh w/deep squat, can sit catrina cross LTG Duration 05/16 strength Short Term Goal (STG) Pt will be indpe w/hEP STG Duration achieved advancing as able Assisted Goal (LTG) Pt will score at least 3/5 LPM and at least 4+/5 on BLE MMT in order to allow greater ease with daily tasks and dec instances of RLE giving out. 02/25-improved LTG Duration 06/01 Assessment Summary Assessment Pt is making good progress w/ PT with improved gait mechanics and improved balance and strength. Still limited strength and feels some limitation in R hip mobility. She would benefit from cont PT to work on hip mobility and gait mechanics along w/dec instances of pain/tightness Physical Therapy Plan Frequency and Duration Frequency of Treatment 1x/wk to every other Duration of treatment (weeks) 8 Plan of Care Start Date 03/30/24 Plan of Care End Date 06/02/24 Therapeutic Interventions Therapeutic Interventions Balance Training,Gait Training ,Home Exercise Program,Joint Mobilizations,Manual Therapy, Neuromuscular Re-education, Self-Care/Home Management,Soft Tissue Mobilization,Taping, Therapeutic Activities, Therapeutic Exercises Modalities Cold Pack/Ice Massage,Electric Stimulation,Hot Packs, Infrared Therapy,Traction- Mechanical,Ultrasound Next Visit Focus/Plan Next Note Type Treatment Note Next Visit Plan work on midfoot mobility and knee tracking to progress towards single leg activity on R
--- NOTE | 2024-03-30 12:19 | PT.OPPOC ---
Physical, Occupational & Speech Therapy At [facility] Current Diagnoses Other symptoms and signs involving the musculoskeletal system (03/30/24) Visit Care Team Role Provider Type JESSICA Lindsey Family Provider Non-Staff Specialty: Medical Address: [address] [place] [address], [id number] Email: Jordan De La Rosa DO Attending Provider Physician Primary Care Provider Referring Provider Specialty: Family Practice Address: [address] [place] [address], [address], [place], [address] Email: [email or web address] Plan Of Care PT-OP-B Current Condition Start: 01/22/24 10:26 Freq: Status: Active Protocol: Document 01/22/24 11:08 [facility] (Rec: 01/22/24 14:31 [facility] [id number]) Current Condition History of Current Condition Onset Date a couple years Current Complaints RLE dec ROM and giving out History of Current Condition Pt reports sometimes r leg gives out (thigh/hip) and does have dec ROM. It can be on/ off. Happen not for months. She had pain mid oct and couldn't get in til November to see doctor. When it happens, its hard to walk downhill. [place] 4x[place] and work outs at home doing resistance bands and free weights on the other days . The on and off pain has been a couple of years. She has had xrays of spine and back which didn't show much. 3-4x/ year this happens and lasts for a few weeks. Her is chiro that practices functional medicine an dhas done some work on her too. It can be stiff when first getting up. Has massage and acupuncture but nothing has helped assisted. 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 She didn't have to see a doctor at the time. She was about 9 years old at the time. Pt reports occ back pain but not sure it is associated w/leg pain. She was just doing travelling and had R leg pain from buttocks to ankle when laying down and that happend a couple nights in a row and worked on her, and it resolved. Every now and then gets a leg ache there. Limited range into ER and can't sit catrina cross. When does yoga, has to sit on a block for catrina cross position. Juan Carlos did do cross fit where she had some leg injuries or back twinges, but it was only enough for her to just need a couple rest days or take it easier in workouts for a week or so. Some point in 2021 is when she had her first giving out episode. Pt had PT for dizziness d/t vertigo and since then balance has never been as good as before. Treatment Goals Patient/Caregiver Goals increase range of motion of R leg, be able to sit catrina cross, squat fully w/o tightness PT-OP-T Assessment and Plan Start: 01/22/24 10:26 Freq: Status: Active Protocol: Document 03/30/24 11:19 [facility] (Rec: 03/30/24 12:19 [facility] [id number]) Physical Therapy Assessment Goals balance Branch Logistics Supervisor Goal (LTG) Pt will be able to do SLS at least 20 sec to demonstrate improved balance 02/25-17 sec R; >30 sec L LTG Duration achieved to 27 sec R, >30 sec L but pelvis drops ROM Short Term Goal (STG) Pt iwll improve flex to equal to that of other side w/o feeling tight and improve ER by 10 deg 02/25-flex achieved; ER improved small STG Duration achieved 03/30 [facility] Goal (LTG) Pt will be able to sit catrina cross and squat deep w/o feeling R hip tightness 02/25-knee tightness limiting today so not fully tested 03/30-pull in thigh w/deep squat, can sit catrina cross LTG Duration 05/16 strength Short Term Goal (STG) Pt will be indpe w/hEP STG Duration achieved advancing as able [facility] Goal (LTG) Pt will score at least 3/5 LPM and at least 4+/5 on BLE MMT in order to allow greater ease with daily tasks and dec instances of RLE giving out. 02/25-improved LTG Duration 06/01 Assessment Summary Assessment Pt is making good progress w/ PT with improved gait mechanics and improved balance and strength. Still limited strength and feels some limitation in R hip mobility. She would benefit from cont PT to work on hip mobility and gait mechanics along w/dec instances of pain/tightness Physical Therapy Plan Frequency and Duration Frequency of Treatment 1x/wk to every other Duration of treatment (weeks) 8 Plan of Care Start Date 03/30/24 Plan of Care End Date 06/02/24 Therapeutic Interventions Therapeutic Interventions Balance Training,Gait Training ,Home Exercise Program,Joint Mobilizations,Manual Therapy, Neuromuscular Re-education, Self-Care/Home Management,Soft Tissue Mobilization,Taping, Therapeutic Activities, Therapeutic Exercises Modalities Cold Pack/Ice Massage,Electric Stimulation,Hot Packs, Infrared Therapy,Traction- Mechanical,Ultrasound Next Visit Focus/Plan Next Note Type Treatment Note Next Visit Plan work on midfoot mobility and knee tracking to progress towards single leg activity on R Plan of Care Dates Plan of Care Start Date 03/30/24 Plan of Care End Date 06/02/24 Electronically Signed by: Emerita Torres, PT 03/30/24 0077 If you are in agreement with this Plan of Care, please return a signed and dated copy. I have reviewed this Plan of Care and certify that the skilled therapy services above are required to meet the patient?s needs. Physician Signature Date Printed Name and Credentials Clinical Instructor Signature Printed Name and Credentials
--- NOTE | 2024-04-13 17:57 | PT.OTN ---
Current Diagnoses Other symptoms and signs involving the musculoskeletal system (04/13/24) Physical Therapy Treatment Note PT-OP-A Visit Information Start: 01/22/24 10:26 Freq: Status: Active Protocol: Document 04/13/24 17:50 [facility] (Rec: 04/13/24 17:57 [facility] [id number]) Out-Patient Physical Therapy Visit Information Visit Information Visit Type Treatment Note Visit Note 10/11 Visit Start Time 15:21 Visit Stop Time 16:00 Visit Number 13 Number of OUTSOLE FLEXER Visits 0 PT-OP-B Current Condition Start: 01/22/24 10:26 Freq: Status: Active Protocol: Document 01/22/24 11:08 [facility] (Rec: 01/22/24 14:31 [facility] [id number]) Current Condition History of Current Condition Onset Date a couple years Current Complaints RLE dec ROM and giving out History of Current Condition Pt reports sometimes r leg gives out (thigh/hip) and does have dec ROM. It can be on/ off. Happen not for months. She had pain mid oct and couldn't get in til November to see doctor. When it happens, its hard to walk downhill. [place] walks [place] 4x[place] and work outs at home doing resistance bands and free weights on the other days . The on and off pain has been a couple of years. She has had xrays of spine and back which didn't show much. 3-4x/ year this happens and lasts for a few weeks. Her is chiro that practices functional medicine an dhas done some work on her too. It can be stiff when first getting up. 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 She didn't have to see a doctor at the time. She was about 9 years old at the time. Pt reports occ back pain but not sure it is associated w/leg pain. She was just doing travelling and had R leg pain from buttocks to ankle when laying down and that happend a couple nights in a row and worked on her, and it resolved. Every now and then gets a leg ache there. Limited range into ER and can't sit catrina cross. When does yoga, has to sit on a block for catrina cross position. Seh did do cross fit where she had some leg injuries or back twinges, but it was only enough for her to just need a couple rest days or take it easier in workouts for a week or so. Some point in 2021 is when she had her first giving out episode. Pt had PT for dizziness d/t vertigo and since then balance has never been as good as before. Treatment Goals Patient/Caregiver Goals increase range of motion of R leg, be able to sit catrina cross, squat fully w/o tightness PT-OP-C Subjective Start: 01/22/24 10:26 Freq: Status: Active Protocol: Document 04/13/24 17:50 [facility] (Rec: 04/13/24 17:57 [facility] [id number]) OP-PT Subjective Patient Comments Patient Comments Pt reports leg pain after sitting in low beach chair w/ leg crossed when got up. Noted had leg pain past couple days but did self mob and epson salt bath and better today PT-OP-D Balance Start: 01/22/24 10:26 Freq: Status: Active Protocol: Document 01/22/24 11:08 [facility] (Rec: 01/22/24 14:31 [facility] [id number]) Balance Tests Single Limb Standing Single Limb- Right 9 sec inc deviation Single Limb- Left 12 sec PT-OP-E Functional Tests Start: 01/22/24 10:26 Freq: Status: Active Protocol: Document 01/22/24 11:08 [facility] (Rec: 01/22/24 14:31 [facility] [id number]) Functional Tests 30 Second Sit to Stand Test Score 12 Comments knee IR Five Times Sit to Stand Test Score 13 sec Squat Test Score can squat w/heels up but shifts slightly left and feels tight R hip Comments knee goes in on R PT-OP-G Mobility & Gait Start: 01/22/24 10:26 Freq: Status: Active Protocol: Document 01/22/24 11:08 [facility] (Rec: 01/22/24 14:31 [facility] [id number]) OP Gait Assessment Comments Gait Comments dec R>LLE push off and inc pelvis R rot w/push off; not straight trajectory w/fwd walk PT-OP-J Posture/Palpation/Skin Start: 01/22/24 10:26 Freq: Status: Active Protocol: Document 03/30/24 11:19 [facility] (Rec: 03/30/24 12:19 [facility] [id number]) Posture Evaluation [facility] Postural Classification System Lumbar Protective Mechanism Left AP 2 Lumbar Protective Mechanism Right AP 2 Lumbar Protective Mechanism Left PA 2 Lumbar Protective Mechanism Right PA 2 PT-OP-K Range of Motion Start: 01/22/24 10:26 Freq: Status: Active Protocol: Document 03/30/24 11:19 [facility] (Rec: 03/30/24 12:19 [facility] [id number]) Hip Goniometric Range of Motion Hip Right Active External Rotation 32 PT-OP-L Special Tests Start: 01/22/24 10:26 Freq: Status: Active Protocol: Document 01/22/24 11:08 [facility] (Rec: 01/22/24 14:31 [facility] [id number]) Special Tests Lumbar Spine Special Tests LEFT Test Results R weakness signficant; L min weakness PT-OP-M Strength Start: 01/22/24 10:26 Freq: Status: Active Protocol: Document 03/30/24 11:19 [facility] (Rec: 03/30/24 12:19 [facility] [id number]) Hip Strength Hip Manual Muscle Testing Right Flexion (L2) 4 Good Extension (S1) 4 Good Abduction 4- Good- Adduction 5 Normal External Rotation 4+ Good+ Internal Rotation 5 Normal Left Flexion (L2) 4+ Good+ Extension (S1) 5 Normal Abduction 5 Normal Adduction 5 Normal External Rotation 5 Normal Internal Rotation 5 Normal Knee Strength Knee Manual Muscle Testing Right Flexion (S2) 5 Normal Extension (L3) 5 Normal Left Flexion (S2) 5 Normal Extension (L3) 5 Normal Ankle/Foot Strength Ankle and Foot Manual Muscle Testing Right Dorsiflexion (L4) 5 Normal Plantarflexion (S1) 5 Normal Left Dorsiflexion (L4) 5 Normal Plantarflexion (S1) 5 Normal Comments heel raises PT-OP-Q Treatments Start: 01/22/24 10:26 Freq: Status: Active Protocol: Document 04/13/24 17:50 [facility] (Rec: 04/13/24 17:57 [facility] [id number]) Therapeutic Exercises Supine Exercises core Supine Exercise Name SL isometric w/opp bug Side bilateral Reps/Minutes 10 Prone Exercises plank Side bilateral Reps/Minutes 30 sec Comments forearm/feet Standing Exercises fwd fall Standing Exercise Name to wall for gait Side bilateral Reps/Minutes 10 squat Standing Exercise Name to mat table at lowest Side bilateral Equipment Used 10lb Reps/Minutes 2x10 Comments minor cues for R knee position & wt position lunge Standing Exercise Name SL Side bilateral Reps/Minutes 15 Comments mirror and UE support w/max VC and tactile cues Other Exercises quadruped Other Exercise Name bird dog Side bilateral Reps/Minutes 10 Comments cues for back position Manual Therapy Treatment Consent Patient gave verbal consent for manual Yes treatment Soft Tissue Mobilization glute Body Location R lat Mobilization Type Rolling,Sustained Pressure Intensity/Depth Moderate Body Position Supine Comments w/hip flex/add Joint Mobilizations hip Comments R inf lat glide FM w/hip add/ flex PT-OP-T Assessment and Plan Start: 01/22/24 10:26 Freq: Status: Active Protocol: Document 04/13/24 17:50 [facility] (Rec: 04/13/24 17:57 [facility] [id number]) Physical Therapy Assessment Goals balance Ballistics Expert Goal (LTG) Pt will be able to do SLS at least 20 sec to demonstrate improved balance 02/25-17 sec R; >30 sec L LTG Duration achieved to 27 sec R, >30 sec L but pelvis drops ROM Short Term Goal (STG) Pt iwll improve flex to equal to that of other side w/o feeling tight and improve ER by 10 deg 02/25-flex achieved; ER improved small STG Duration achieved 03/30 Ballistics Expert Goal (LTG) Pt will be able to sit catrina cross and squat deep w/o feeling R hip tightness 02/25-knee tightness limiting today so not fully tested 03/30-pull in thigh w/deep squat, can sit catrina cross LTG Duration 05/16 strength Short Term Goal (STG) Pt will be indpe w/hEP STG Duration achieved advancing as able Ballistics Expert Goal (LTG) Pt will score at least 3/5 LPM and at least 4+/5 on BLE MMT in order to allow greater ease with daily tasks and dec instances of RLE giving out. 02/25-improved LTG Duration 06/01 Assessment Summary Assessment Pt did well with progression to SL activities today when given cues and use of mirror but does still have dec hip abd activation. did well with core exercises Physical Therapy Plan Frequency and Duration Frequency of Treatment 1x/wk to every other Duration of treatment (weeks) 8 Plan of Care Start Date 03/30/24 Plan of Care End Date 06/02/24 Next Visit Focus/Plan Next Note Type Progress Note Next Visit Plan knee tracking w/single leg activity on R>L
--- NOTE | 2024-05-12 17:03 | PT.OTN ---
Current Diagnoses Other symptoms and signs involving the musculoskeletal system (05/12/24) Physical Therapy Treatment Note PT-OP-A Visit Information Start: 01/22/24 10:26 Freq: Status: Active Protocol: Document 05/12/24 10:28 [facility] (Rec: 05/12/24 18:09 [facility] [id number]) Out-Patient Physical Therapy Visit Information Visit Information Visit Type Treatment Note Visit Start Time 10:32 Visit Stop Time 11:15 Visit Number 14 Number of FLOOR GRINDER Visits 0 PT-OP-B Current Condition Start: 01/22/24 10:26 Freq: Status: Active Protocol: Document 01/22/24 11:08 [facility] (Rec: 01/22/24 14:31 [facility] [id number]) Current Condition History of Current Condition Onset Date a couple years Current Complaints RLE dec ROM and giving out History of Current Condition Pt reports sometimes r leg gives out (thigh/hip) and does have dec ROM. It can be on/ off. Happen not for months. She had pain mid oct and couldn't get in til November to see doctor. When it happens, its hard to walk downhill. [place] 4x[place] and work outs at home doing resistance bands and free weights on the other days . The on and off pain has been a couple of years. She has had xrays of spine and back which didn't show much. 3-4x/ year this happens and lasts for a few weeks. Her is chiro that practices functional medicine an dhas done some work on her too. It can be stiff when first getting up. 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 She didn't have to see a doctor at the time. She was about 9 years old at the time. Pt reports occ back pain but not sure it is associated w/leg pain. She was just doing travelling and had R leg pain from buttocks to ankle when laying down and that happend a couple nights in a row and worked on her, and it resolved. Every now and then gets a leg ache there. Limited range into ER and can't sit catrina cross. When does yoga, has to sit on a block for catrina cross position. Seh did do cross fit where she had some leg injuries or back twinges, but it was only enough for her to just need a couple rest days or take it easier in workouts for a week or so. Some point in 2021 is when she had her first giving out episode. Pt had PT for dizziness d/t vertigo and since then balance has never been as good as before. Treatment Goals Patient/Caregiver Goals increase range of motion of R leg, be able to sit catrina cross, squat fully w/o tightness PT-OP-C Subjective Start: 01/22/24 10:26 Freq: Status: Active Protocol: Document 05/12/24 10:28 [facility] (Rec: 05/12/24 18:09 [facility] [id number]) OP-PT Subjective Patient Comments Patient Comments Pt reports feeling good and feels good w/most exercises. Has questions about her gait and bugs PT-OP-D Balance Start: 01/22/24 10:26 Freq: Status: Active Protocol: Document 01/22/24 11:08 [facility] (Rec: 01/22/24 14:31 [facility] [id number]) Balance Tests Single Limb Standing Single Limb- Right 9 sec inc deviation Single Limb- Left 12 sec PT-OP-E Functional Tests Start: 01/22/24 10:26 Freq: Status: Active Protocol: Document 01/22/24 11:08 [facility] (Rec: 01/22/24 14:31 [facility] [id number]) Functional Tests 30 Second Sit to Stand Test Score 12 Comments knee IR Five Times Sit to Stand Test Score 13 sec Squat Test Score can squat w/heels up but shifts slightly left and feels tight R hip Comments knee goes in on R PT-OP-G Mobility & Gait Start: 01/22/24 10:26 Freq: Status: Active Protocol: Document 01/22/24 11:08 [facility] (Rec: 01/22/24 14:31 [facility] [id number]) OP Gait Assessment Comments Gait Comments dec R>LLE push off and inc pelvis R rot w/push off; not straight trajectory w/fwd walk PT-OP-J Posture/Palpation/Skin Start: 01/22/24 10:26 Freq: Status: Active Protocol: Document 05/12/24 10:28 [facility] (Rec: 05/12/24 18:09 [facility] [id number]) Posture Evaluation [facility] Postural Classification System Lumbar Protective Mechanism Left AP 1 Lumbar Protective Mechanism Right AP 1 Lumbar Protective Mechanism Left PA 3 Lumbar Protective Mechanism Right PA 3 PT-OP-K Range of Motion Start: 01/22/24 10:26 Freq: Status: Active Protocol: Document 03/30/24 11:19 [facility] (Rec: 03/30/24 12:19 [facility] [id number]) Hip Goniometric Range of Motion Hip Right Active External Rotation 32 PT-OP-L Special Tests Start: 01/22/24 10:26 Freq: Status: Active Protocol: Document 01/22/24 11:08 [facility] (Rec: 01/22/24 14:31 [facility] [id number]) Special Tests Lumbar Spine Special Tests LEFT Test Results R weakness signficant; L min weakness PT-OP-M Strength Start: 01/22/24 10:26 Freq: Status: Active Protocol: Document 05/12/24 10:28 [facility] (Rec: 05/12/24 18:09 [facility] [id number]) Hip Strength Hip Manual Muscle Testing Right Flexion (L2) 5 Normal Extension (S1) 4+ Good+ Abduction 4+ Good+ Adduction 5 Normal External Rotation 5 Normal Internal Rotation 5 Normal Left Flexion (L2) 5 Normal Extension (S1) 5 Normal Abduction 5 Normal Adduction 5 Normal External Rotation 5 Normal Internal Rotation 5 Normal Knee Strength Knee Manual Muscle Testing Right Flexion (S2) 5 Normal Extension (L3) 5 Normal Left Flexion (S2) 5 Normal Extension (L3) 5 Normal PT-OP-Q Treatments Start: 01/22/24 10:26 Freq: Status: Active Protocol: Document 05/12/24 10:28 [facility] (Rec: 05/12/24 18:09 [facility] [id number]) Therapeutic Exercises Supine Exercises core Supine Exercise Name bug Side bilateral Reps/Minutes 2x8 Comments cues backa nd sequence Sitting Exercises stretch Sitting Exercise Name figure 4 and patsy Side right Reps/Minutes 30 sec ea Other Exercises isometrics Other Exercise Name B LE MMT; LPM, VCT Reps/Minutes 7 min Gait Training Gait Activity gait Comments 4 min: cues working on push off through big toe Manual Therapy Treatment Consent Patient gave verbal consent for manual Yes treatment Soft Tissue Mobilization add Body Location R Mobilization Type Rolling Intensity/Depth Moderate Body Position Sidelying Joint Mobilizations hip Comments R inf and free the ball R FM; inf med in seated catrina cross position & R abd FM PT-OP-T Assessment and Plan Start: 01/22/24 10:26 Freq: Status: Active Protocol: Document 05/12/24 10:28 [facility] (Rec: 05/12/24 18:09 [facility] [id number]) Physical Therapy Assessment Goals balance Pipe Line Repairer Goal (LTG) Pt will be able to do SLS at least 20 sec to demonstrate improved balance 02/25-17 sec R; >30 sec L LTG Duration achieved to 27 sec R, >30 sec L but pelvis drops ROM Short Term Goal (STG) Pt iwll improve flex to equal to that of other side w/o feeling tight and improve ER by 10 deg 02/25-flex achieved; ER improved small STG Duration achieved 03/30 Pipe Line Repairer Goal (LTG) Pt will be able to sit catrina cross and squat deep w/o feeling R hip tightness 02/25-knee tightness limiting today so not fully tested 03/30-pull in thigh w/deep squat, can sit catrina cross LTG Duration 05/12-able to do deep squat and can catrina cross but stiff strength Short Term Goal (STG) Pt will be indpe w/hEP STG Duration achieved advancing as able Mcc Goal (LTG) Pt will score at least 3/5 LPM and at least 4+/5 on BLE MMT in order to allow greater ease with daily tasks and dec instances of RLE giving out. 02/25-improved LTG Duration 05/12 mostly achieved Assessment Summary Assessment Pt has made excellent progress w/PT w/much improved strength and balance w/RLE along w/ improved overall ROM of R hip. She does still have some limits and was encouraged to cont HEP and stretches and pt feels indep w/this. DC at this time to HEP d/t meeting goals . Physical Therapy Plan Discharge Physical Therapy Discharge Reasons Goals Met
== END 2024-05-18 14:53 | disposition home or self-care (01) ==
LOC: PHYS 10:30
PROVIDERS: Family Provider Nurse Practitioner Women's Health; PCP Family Medicine; Referring Provider Family Medicine; Visit Provider Family Medicine
DX: R29.898 Other symptoms and signs involving the musculoskeletal system (principal)
CPT/HCPCS: 97110; 97112; 97116; 97140; 97162; 97535

== ENCOUNTER → 2024-10-28 13:16 | Outpatient (CLI) | payer MEDICARE, OTHER, SELFPAY | PROVIDERS: Family Provider Nurse Practitioner Women's Health; PCP Family Medicine; Referring Provider Family Medicine; Visit Provider Family Medicine | DX: Z12.11 Encounter for screening for malignant neoplasm of colon (principal) | CPT/HCPCS: 82274 ==

== ENCOUNTER → 2024-12-10 11:47 | Outpatient (CLI) | payer MEDICARE, OTHER, SELFPAY | PROVIDERS: Family Provider Nurse Practitioner Women's Health; PCP Family Medicine; Visit Provider Physician Assistant | DX: R30.0 Dysuria (principal); N94.89 Other specified conditions associated with female genital organs and menstrual cycle | CPT/HCPCS: 87077; 87086; 87186; 87210 ==

== ENCOUNTER → 2024-12-30 14:47 | Outpatient (CLI) | payer MEDICARE, OTHER, SELFPAY ==
--- NOTE | 2024-12-30 14:48 | DI.RAD.S_ITS ---
PROCEDURE: XR DEXA AXIAL SKELETON INDICATIONS: bone density screening COMPARISON: None. FINDINGS: Lumbar Spine: Bone mineral density 0.981 g/cm2, T score -0.6, baseline. Left Femoral Neck: Bone mineral density 0.740 g/cm2, T score -1. Left Hip: Bone mineral density 0.903 g/cm2, T score -0.3, baseline. Fracture Risk Calculation (when applicable): Not reported due to normal bone mineralization. (T score greater or equal to -1.0 to: NORMAL) (T score from -1.1 to -2.4: OSTEOPENIA) (T score less than or equal to -2.5: OSTEOPOROSIS) IMPRESSION: Normal bone mineralization. Follow-up guidelines as follows: Osteoporosis: Consider a repeat DEXA and Vertebral Fracture Assessment (VFA) exam in 2 years or sooner if medically necessary, to reassess this patient's status. Osteopenia: Consider a repeat DEXA in 2-3 years to reassess this patient's status, or if there is a new clinical indication. Normal: Consider a repeat DEXA in 5 years or sooner, or if there is a new clinical indication. All treatment decisions require clinical judgment and consideration of individual patient factors, including patient preferences, comorbidities, previous drug use, risk factors not captured in the FRAX model (e.g., frailty, falls, vitamin D deficiency, increased bone turnover, interval significant decline in bone density ) and possible under- or over-estimation of fracture risk by FRAX. In addition, the NOF Guide recommends that FDA-approved medical therapies be considered in postmenopausal women and men age >= 50 years with a: * Hip or vertebral (clinical or morphometric) fracture * T-score of <=-2.5 at the spine or hip * Ten-year fracture probability by FRAX of >= 3% for hip fracture or >=20% for major osteoporotic fracture. Dictated by: Jurgen Burks M.D. on 12/31/2024 at 10:55 Approved by: Jurgen Burks M.D. on 12/31/2024 at 10:56
--- NOTE | 2024-12-30 14:49 | DI.MG.S_ITS ---
MM screening mammo BI: 12/30/2024. BI-RADS: 1 CLINICAL: 69-year old female for bilateral screening mammogram. Tyrer-Cuzick lifetime risk of 6.6%. No personal or first-degree family history of breast cancer. PRIOR EXAMS 03/29/2020, 11/25/2017, 11/19/2017. MAMMOGRAPHY TECHNIQUE: 2D and 3D (tomosynthesis) digital mammographic views obtained, with additional images as needed for full coverage. Current study was also evaluated with a Computer Aided Detection (CAD) system. DENSITY D. The breasts are extremely dense, which lowers the sensitivity of mammography. MAMMOGRAPHY FINDINGS Bilateral: No suspicious mass, asymmetry, microcalcification, or other abnormality seen. No significant change from comparison. IMPRESSION: * No evidence of malignancy. RECOMMENDATIONS Bilateral * Annual screening mammography. OVERALL ASSESSMENT CATEGORY BI-RADS-1: Negative. The [employer] recommends annual screening mammography beginning at age 40 for women with average risk of breast cancer. ELECTRONICALLY SIGNED: Dina Chand M.D. on 12/31/2024 at 12:15:14 PM PT Interpreting Station ID: [id number]
== END ==
PROVIDERS: Family Provider Nurse Practitioner Women's Health; PCP Family Medicine; Referring Provider Family Medicine; Visit Provider Family Medicine
DX: M85.89 Other specified disorders of bone density and structure, multiple sites (principal); Z12.31 Encounter for screening mammogram for malignant neoplasm of breast; R92.343 Mammographic extreme density, bilateral breasts
CPT/HCPCS: 77063; 77067; 77080

== ENCOUNTER → 2025-01-05 15:44 | Outpatient (CLI) | payer MEDICARE, OTHER, SELFPAY | PROVIDERS: Family Provider Nurse Practitioner Women's Health; PCP Family Medicine; Visit Provider Chiropractor | DX: N94.9 Unspecified condition associated with female genital organs and menstrual cycle (principal) | CPT/HCPCS: 87086; 87210 ==

== ENCOUNTER → 2025-01-18 10:03 | Outpatient (CLI) | payer MEDICARE, OTHER, SELFPAY ==
--- NOTE | 2025-01-18 10:06 | DI.RAD.S_ITS ---
PROCEDURE: XR LUMBAR SPINE MIN 4V INDICATIONS: new lateral ankle paresthesia TECHNIQUE: 5 views of the lumbar spine acquired, including flexion and extension views. COMPARISON: None. FINDINGS: Lumbar spine curvature and alignment: Normal. Bones: There are no osseous abnormalities. Disc spaces: Mild L4-5 degenerative disc disease appreciated. Mild L4-5 and L5-S1 degenerative facet disease Intervertebral foramen: Grossly normal in width. Soft tissues: No soft tissue swelling, calcification or mass. IMPRESSION: Mild degeneration Dictated by: Darian Rowe M.D. on 01/18/2025 at 13:24 Approved by: Darian Rowe M.D. on 01/18/2025 at 13:25
--- NOTE | 2025-01-18 10:06 | DI.RAD.S_ITS ---
PROCEDURE: XR HIP W PEL IF DONE RT 2V INDICATIONS: acute flare pain with newly limited external rotation TECHNIQUE: Two views of the right hip were acquired. COMPARISON: None. FINDINGS: Bones: There are no osseous abnormalities. SI and hip joints: Normal in width and alignment without arthritic change Soft tissues: Small calcifications , adjacent to both greater trochanters may represent calcific tendinitis of the gluteal tendon insertion. A large calcification conglomerate, spanning 5.4 cm, seen in the low central pelvis. Suspect calcified uterine fibroid IMPRESSION: Chronic findings that as described Dictated by: Darian Rowe M.D. on 01/18/2025 at 13:22 Approved by: Darian Rowe M.D. on 01/18/2025 at 13:23
== END ==
PROVIDERS: Family Provider Nurse Practitioner Women's Health; PCP Family Medicine; Referring Provider Family Medicine; Visit Provider Family Medicine
DX: M54.16 Radiculopathy, lumbar region (principal); M25.551 Pain in right hip; G89.29 Other chronic pain; M51.369 Other intervertebral disc degeneration, lumbar region without mention of lumbar back pain or lower extremity pain; M25.851 Other specified joint disorders, right hip
CPT/HCPCS: 72110; 73502

== ENCOUNTER → 2025-01-26 08:04 | Outpatient (CLI) | payer MEDICARE, OTHER, SELFPAY ==
[2025-01-26 09:38] LABS: Add Manual Diff / Slide Review NO; Basophils Absolute Auto 0 /uL (0-100); Basophils Percent Auto 0.8 % (0-2); Eosinophils Absolute Auto 100 /uL (0-450); Eosinophils Percent Auto 1.5 % (2-4); Hematocrit 40.6 % (36-46); Hemoglobin 13.9 g/dL (12.0-16.0); Lymphocytes Absolute Auto 1600 /uL (1100-4500); Lymphocytes Percent Auto 31.9 % (25-40); Mean Corpuscular HGB Conc 34.3 % (30-36); Mean Corpuscular Hemoglobin 31.6 PG (26-34); Monocytes Absolute Auto 400 /uL (0-900); Monocytes Percent Auto 8.4 % (3-14); Neutrophils Absolute Auto 2800 /uL (1500-7000); Neutrophils Percent Auto 57.4 % (50-75); Platelet Count 200 X10^3/uL (150-400); Red Blood Cell Count 4.41 X10^6/uL (4.0-5.2); Red Cell Distribution Width 13.6 % (11.6-14.8); White Blood Cell Count 4.9 X10^3/uL (4.5-11.0)
[2025-01-26 09:45] LABS: Hemoglobin A1C% w Est Avg Glu 5.3 % (4.0-6.0)
[2025-01-26 10:10] LABS: Alanine Aminotransferase 16 IU/L (<35); Albumin 4.6 g/dL (3.5-5.0); Albumin Globulin Ratio 1.9 (1.0-2.8); Alkaline Phosphatase 82 U/L (38-126); Aspartate Aminotransferase 27 IU/L (14-36); Bilirubin Total 0.7 mg/dL (0.2-1.3); Blood Urea Nitrogen 30 mg/dL (7-17); Calcium 9.6 mg/dL (8.4-10.2); Carbon Dioxide 25 mmol/L (22-32); Chloride 102 mmol/L (98-107); Cholesterol 180 mg/dL (140-199); Estimated Glomerular Filt Rate > 60 mL/min (>60); Globulin 2.4 g/dL (1.7-4.1); Glucose 106 mg/dL (70-99); HDL Cholesterol 81 mg/dL (40-60); HEMOLYSIS < 15 (0-50); LDL Cholesterol Calculated 87 mg/dL (<100); Potassium 4.6 mmol/L (3.4-5.1); Sodium 136 mmol/L (137-145); Triglycerides 58 mg/dL (35-150)
[2025-01-26 10:39] LABS: TSH w/ Reflex to FT4 0.63 uIU/mL (0.47-4.68)
[2025-01-27 04:39] LABS: CRP, High Sensitivity 1.09 mg/L (0.00-3.00)
[2025-01-27 07:09] LABS: Dehydroepiandrosterone Sulfate 95.7 ug/dL (20.4-186.6)
[2025-02-02 11:11] LABS: Estradiol, Sensitive 20.9 pg/mL (.)
== END ==
PROVIDERS: Family Provider Nurse Practitioner Women's Health; PCP Family Medicine; Referring Provider Family Medicine; Visit Provider Family Medicine
DX: Z00.00 Encounter for general adult medical examination without abnormal findings (principal); N94.10 Unspecified dyspareunia; N95.2 Postmenopausal atrophic vaginitis
CPT/HCPCS: 36415; 80053; 80061; 82627; 82670; 83036; 84443; 85025; 86140

== ENCOUNTER → 2025-01-26 13:13 | Outpatient (CLI) | payer MEDICARE, OTHER, SELFPAY ==
--- NOTE | 2025-01-26 13:15 | DI.MRI.S_ITS ---
PROCEDURE: MR LUMBAR SPINE WO CON INDICATIONS: right leg/hip pain, low back pain TECHNIQUE: Noncontrast sagittal T1 spin echo and T2 fast echo, sagittal STIR, and T2 fast spin echo through the lumbar spine. In cases with scoliosis, additional coronal T2 fast spin echo may be performed. COMPARISON: [facility], CR, XR LUMBAR SPINE MIN 4V, 01/18/2025, 10:20. FINDINGS: Image quality: Excellent. Alignment and Curvature: There is normal bony alignment. Bone Marrow: Marrow is of normal overall signal. No acute vertebral body compression fractures. Spinal Cord: Conus medullaris terminates at the L1 level. Visualized cord demonstrates normal signal and size. Paraspinous Soft Tissues: No paravertebral masses. T12-L1: No disc bulge, spinal stenosis or foraminal narrowing. L1-L2: Minimal disc bulge stenosis or foraminal narrowing. L2-L3: Minimal disc bulge without spinal stenosis or foraminal narrowing. Mild ligamentum flavum hypertrophy. L3-L4: Mild disc bulge with mild spinal stenosis. No foraminal narrowing. Prominent ligamentum flavum hypertrophy. L4-L5: Mild disc bulge with minimal spinal stenosis. Mild left foraminal narrowing with ligamentum flavum hypertrophy. L5-S1: Mild disc bulge without spinal stenosis. No foraminal narrowing. IMPRESSION: Mild early degenerative changes as above. Dictated by: Kimberli Waite M.D. on 01/26/2025 at 22:27 Approved by: Kimberli Waite M.D. on 01/26/2025 at 22:29
== END ==
PROVIDERS: Family Provider Nurse Practitioner Women's Health; PCP Family Medicine; Referring Provider Family Medicine; Visit Provider Family Medicine
DX: Z00.00 Encounter for general adult medical examination without abnormal findings (principal); M54.16 Radiculopathy, lumbar region; G89.29 Other chronic pain; M25.551 Pain in right hip; N94.10 Unspecified dyspareunia; N95.2 Postmenopausal atrophic vaginitis; M51.369 Other intervertebral disc degeneration, lumbar region without mention of lumbar back pain or lower extremity pain; M48.061 Spinal stenosis, lumbar region without neurogenic claudication; M51.379 Other intervertebral disc degeneration, lumbosacral region without mention of lumbar back pain or lower extremity pain
CPT/HCPCS: 36415; 72148; 80053; 80061; 82627; 82670; 83036; 84443; 85025; 86140

== ENCOUNTER 2025-05-10 13:00 | Outpatient (RCR) | payer MEDICARE, OTHER, SELFPAY ==
--- NOTE | 2025-03-21 16:36 | PT.OIE ---
Current Diagnoses Lymphedema, not elsewhere classified (03/21/25) Soft tissue disorder, unspecified (03/21/25) Edema, unspecified (03/21/25) Past Medical History (Last Reviewed 09/30/23 @ 10:21 by Mandy Solorzano PA-C) Atrophic vaginitis Fibroids (~1989) Hearing loss Herpes (~1978) Mumps Ovarian cyst Skin cancer (~2001) Vertigo (~2018) Wears glasses Past Surgical History (Last Reviewed 09/30/23 @ 10:21 by Mandy Solorzano PA-C) Anesthesia History of colonoscopy Visit Care Team Role Provider Type Marily Carrillo DO Attending Provider Physician Family Provider Primary Care Provider Referring Provider Specialty: Medical Address: [address] [place] [address], [address], [place], [address] Email: [email or web address] Physical Therapy Initial Evaluation PT-OP-A Visit Information Start: 03/21/25 10:44 Freq: Status: Active Protocol: Document 03/21/25 10:44 SAK (Rec: 03/21/25 11:43 SAK Laptop) Out-Patient Physical Therapy Visit Information Visit Information Visit Type Initial Evaluation Visit Start Time 10:45 Visit Stop Time 12:15 Visit Number 1 Evaluation Information Evaluation Date 03/21/25 Precautions Precautions PMH: IBS PT-OP-B Current Condition Start: 03/21/25 10:44 Freq: Status: Active Protocol: Document 03/21/25 10:44 SAK (Rec: 03/21/25 11:43 SAK Laptop) Current Condition History of Current Condition Onset Date 10 years Current Complaints swelling dayne distal lower legs left worst leg, painful to touch mediallyh History of Current Swelling bilateral lower legs left greater than right Condition worst in band above ankle, tender to touch especially on inside. Has had lymphatic massage 5x and didn't do anything. Tried accupuncture for lymphedatic drainage helpful; 5 yrs ago, accupuncturist , hasn't found another. Does have compression stockings, wears only for flying, though did try over the winter for 1 week and doesn't feel was helpful, not sure level of compression. States she really started to notice the swelling 10 yrs ago as she was going through menopause. Not sure if elevating legs helpful. Not hypermobile, doesn't notice excessive bruising. Is very active walking [address] 2-3 days per week and doing resistance exercises. Has IBS and is gluten intolerant, is careful with diet. Prior Treatments and None Tests Treatment Goals Patient/Caregiver reduce edema and be able to self manage Goals Personal Factors Other Personal IBS Factors That May Effect Therapy/ Recovery PT-OP-C Subjective Start: 03/21/25 10:44 Freq: Status: Active Protocol: Document 03/21/25 10:44 SAK (Rec: 03/21/25 12:28 [facility] Laptop) Patient Questionnaires Lymphedema Life Impact Score Lymphedema Score 11 OP-PT Pain Assessment Pain Assessment Grid Paper Pain Yes Assessment Grid Completed Location dayne LE's Pain Location medial lower legs left greater than right Details Intensity 1 Other Pain pressure, palpation Aggravating Factors PT-OP-G Mobility & Gait Start: 03/21/25 10:44 Freq: Status: Active Protocol: Document 03/21/25 10:44 SAK (Rec: 03/21/25 12:28 [facility] Laptop) OP Gait Assessment Gait Gait Assistance Independent Required: Assistive Devices Assistive Device None PT-OP-J Posture/Palpation/Skin Start: 03/21/25 10:44 Freq: Status: Active Protocol: Document 03/21/25 10:44 SAK (Rec: 03/21/25 12:28 [facility] Laptop) Posture Evaluation Position Standing Knee Posture (L) Genu Recurvatum,(R) Genu Recurvatum Palpation Assessment Location medial lower legs Palpation Findings Edema,Tenderness Palpation Details Tenderness medially, approx 3in band thickened tissue proximal to ankles left greater than right; visible and palpable, no fibrosis or hyperkeratosis, no increase in warmth. Skin Assessment Edema Assessment dayne lower legs Edema Type Non-Pitting Edema Appearance Puffy Subjective Edema Pain Description Comments pain with palpation mediallyb PT-OP-K Range of Motion Start: 03/21/25 10:44 Freq: Status: Active Protocol: Document 03/21/25 16:11 SAK (Rec: 03/21/25 16:33 SAK Laptop) Hip Goniometric Range of Motion Hip DAYNE Hip ROM WFL Yes Knee Goniometric Range of Motion Knee dayne Knee ROM WFL Yes Ankle and Foot Goniometric Range of Motion Ankle and Foot dayne Ankle/Foot ROM WFL Yes PT-OP-N Lymphedema Start: 03/21/25 10:44 Freq: Status: Active Protocol: Document 03/21/25 10:44 SAK (Rec: 03/21/25 11:43 SAK Laptop) Lymphedema Measurements Lower Extremity Circumference Measurements Affected MT Heads 19.5 cm Mid-foot 19.3 cm Medial Malleolus 20.2 cm 10 cm From Medial 25 cm Malleolus 20 cm From Medial 33.4 cm Malleolus 30 cm From Medial 31.3 cm Malleolus 40 cm From Medial 36.7 cm Malleolus 50 cm From Medial 42.9 cm Malleolus 60 cm From Medial 51.6 cm Malleolus 70 cm From Medial 61.7 cm Malleolus Knee Joint 34.2 cm - RIGHT Left Affected MT Heads 20.4 cm Mid-foot 20 cm Medial Malleolus 20.9 cm 10 cm From Medial 25.3 cm Malleolus 20 cm From Medial 32.2 cm Malleolus 30 cm From Medial 30.8 cm Malleolus 40 cm From Medial 35 cm Malleolus 50 cm From Medial 41.4 cm Malleolus 60 cm From Medial 50.3 cm Malleolus 70 cm From Medial 54.8 cm Malleolus Knee Joint 34 cm PT-OP-Q Treatments Start: 03/21/25 10:44 Freq: Status: Active Protocol: Document 03/21/25 16:11 SAK (Rec: 03/21/25 16:33 [facility] Laptop) Lymphedema Treatment Manual Lymphatic Drainage Location for dayne lower leg lymphedema Duration 25 Comments with patient education for technique Lymphedema Wrapping Other No bandaging performed today, patient to bring current compression stockings next session, consider bandaging Compression Garment Assessment Compression Garment patient did not bring Assessment Details Patient Education Lymphedema Pathology instructed using visual aid Lymphedema issued written information Prevention Lymphedema issued written information Precautions Compression Garments disussed, patient to bring next session Self Manual instructed and given written online educational Lymphatic Drainage resource Sequential instructed and given written and online educational Lymphedema Exercises resources Other Other Educated and issued educational resources on lipedema and lymphedema. PT-OP-T Assessment and Plan Start: 03/21/25 10:44 Freq: Status: Active Protocol: Document 03/21/25 16:11 SAK (Rec: 03/21/25 16:33 SAK Laptop) Physical Therapy Assessment Rehab Potential Rehabilitation Good Potential Evaluation Complexity Number of Personal 1-2 Factors/ Comorbidities Clinical Evolving Presentation at Evaluation Impairments Impairments Edema,Pain Goals Two Impairment pain medial distal lower legs [employer] Special Education Teacher Goal (LTG) Patient to report at least a 50% reduction in pain for improved activity tolerance LTG Duration 06/21/25 One Impairment lipolymphedema dayne lower legs left greater than right Short Term Goal (STG Patient will be instructed in all aspects of lymphedema ) self-care to include skin care, elevation, self- massage, self-bandaging/compression options, and lymphedema exercises. STG Duration 05/02/25 [employer] Special Education Teacher Goal (LTG) Decrease patient?s lymphedema to a stable level (no increase or decrease greater than 1 cm over the course of 1 week), patient to be independent with all aspects of self-care for lymphedema, and will obtain appropriate compression garment for lymphedema management in the home. LTG Duration 06/21/25 Assessment Summary Assessment Patient presents to PT with 10 yr history edema distal lower extremities dayne left greater than right. On left band of swelling visually seen and able to be palpated proximal to ankle approx 3 wide, tender to palpation medially. Patient reports onset approximately 10 years ago when going through menopause. No discoloration, hyperkeratosis, or increased warmth. Does have palpable tenderness medial left LE proximal to medial malleolus with palpable thickening of tissue and mild fibrosis. Denies prior injury or surgery to legs. Wears compression stockings to fly, states she tried daily for 1 week but didn't see a difference; uncertain level of compression and didn't bring today. Circumferential measurements reveal larger on left than right distally (from MTP to 20 cm proximal ankle crease) then larger right leg from 20 cm to knee. Patient doesn't notice a difference in swelling with elevation, but reports some worsening by the end of the day. Signs and symptoms indicative of possible lipolymphedema especially with onset/worsening at menopause. Feel patient would benefit from PT to address goals as above and help her be able to self manage her edema. POC was discussed and patient was in agreement. Physical Therapy Plan Frequency and Duration Frequency of 20 Treatment Duration of 12 treatment (weeks) Plan of Care Start 03/21/25 Date Plan of Care End 06/21/25 Date Therapeutic Interventions Therapeutic Home Exercise Program,Lymphedema Management,Manual Interventions Therapy,Patient/Caregiver Education,Self-Care/Home Management,Soft Tissue Mobilization,Taping,Therapeutic Exercises Modalities Infrared Therapy,Vasopneumatic Devices Next Visit Focus/Plan Next Note Type Treatment Note Next Visit Plan Assess response to first treatment, discuss questions, assess patient current compression stockings for fit and appropriateness, consider bandaging or trial KT tape. Continue CDT.
--- NOTE | 2025-03-21 16:37 | PT.OPPOC ---
Physical, Occupational & Speech Therapy At [facility] Current Diagnoses Lymphedema, not elsewhere classified (03/21/25) Soft tissue disorder, unspecified (03/21/25) Edema, unspecified (03/21/25) Visit Care Team Role Provider Type Marily Carrillo DO Attending Provider Physician Family Provider Primary Care Provider Referring Provider Specialty: Medical Address: [address] [place] [address], [address], [place], [address] Email: [email or web address] Plan Of Care PT-OP-B Current Condition Start: 03/21/25 10:44 Freq: Status: Active Protocol: Document 03/21/25 10:44 SAK (Rec: 03/21/25 11:43 SAK Laptop) Current Condition History of Current Condition Onset Date 10 years Current Complaints swelling belinda distal lower legs left worst leg, painful to touch mediallyh History of Current Swelling bilateral lower legs left greater than right Condition worst in band above ankle, tender to touch especially on inside. Has had lymphatic massage 5x and didn't do anything. Tried accupuncture for lymphedatic drainage helpful; 5 yrs ago, accupuncturist , hasn't found another. Does have compression stockings, wears only for flying, though did try over the winter for 1 week and doesn't feel was helpful, not sure level of compression. States she really started to notice the swelling 10 yrs ago as she was going through menopause. Not sure if elevating legs helpful. Not hypermobile, doesn't notice excessive bruising. Is very active walking [address] 2-3 days per week and doing resistance exercises. Has IBS and is gluten intolerant, is careful with diet. Prior Treatments and None Tests Treatment Goals Patient/Caregiver reduce edema and be able to self manage Goals Personal Factors Other Personal IBS Factors That May Effect Therapy/ Recovery PT-OP-T Assessment and Plan Start: 03/21/25 10:44 Freq: Status: Active Protocol: Document 03/21/25 16:11 SAK (Rec: 03/21/25 16:33 SAK Laptop) Physical Therapy Assessment Rehab Potential Rehabilitation Good Potential Evaluation Complexity Number of Personal 1-2 Factors/ Comorbidities Clinical Evolving Presentation at Evaluation Impairments Impairments Edema,Pain Goals Two Impairment pain medial distal lower legs [facility] Goal (LTG) Patient to report at least a 50% reduction in pain for improved activity tolerance LTG Duration 06/21/25 One Impairment lipolymphedema belinda lower legs left greater than right Short Term Goal (STG Patient will be instructed in all aspects of lymphedema ) self-care to include skin care, elevation, self- massage, self-bandaging/compression options, and lymphedema exercises. STG Duration 05/02/25 [facility] Goal (LTG) Decrease patient?s lymphedema to a stable level (no increase or decrease greater than 1 cm over the course of 1 week), patient to be independent with all aspects of self-care for lymphedema, and will obtain appropriate compression garment for lymphedema management in the home. LTG Duration 06/21/25 Assessment Summary Assessment Patient presents to PT with 10 yr history edema distal lower extremities belinda left greater than right. On left band of swelling visually seen and able to be palpated proximal to ankle approx 3 wide, tender to palpation medially. Patient reports onset approximately 10 years ago when going through menopause. No discoloration, hyperkeratosis, or increased warmth. Does have palpable tenderness medial left LE proximal to medial malleolus with palpable thickening of tissue and mild fibrosis. Denies prior injury or surgery to legs. Wears compression stockings to fly, states she tried daily for 1 week but didn't see a difference; uncertain level of compression and didn't bring today. Circumferential measurements reveal larger on left than right distally (from MTP to 20 cm proximal ankle crease) then larger right leg from 20 cm to knee. Patient doesn't notice a difference in swelling with elevation, but reports some worsening by the end of the day. Signs and symptoms indicative of possible lipolymphedema especially with onset/worsening at menopause. Feel patient would benefit from PT to address goals as above and help her be able to self manage her edema. POC was discussed and patient was in agreement. Physical Therapy Plan Frequency and Duration Frequency of 20 Treatment Duration of 12 treatment (weeks) Plan of Care Start 03/21/25 Date Plan of Care End 06/21/25 Date Therapeutic Interventions Therapeutic Home Exercise Program,Lymphedema Management,Manual Interventions Therapy,Patient/Caregiver Education,Self-Care/Home Management,Soft Tissue Mobilization,Taping,Therapeutic Exercises Modalities Infrared Therapy,Vasopneumatic Devices Next Visit Focus/Plan Next Note Type Treatment Note Next Visit Plan Assess response to first treatment, discuss questions, assess patient current compression stockings for fit and appropriateness, consider bandaging or trial KT tape. Continue CDT. Plan of Care Dates Plan of Care Start Date 03/21/25 Plan of Care End Date 06/21/25 Electronically Signed by: Abi Morales, PT 03/21/25 [id number] If you are in agreement with this Plan of Care, please return a signed and dated copy. I have reviewed this Plan of Care and certify that the skilled therapy services above are required to meet the patient?s needs. Physician Signature Date Printed Name and Credentials Clinical Instructor Signature Printed Name and Credentials
--- NOTE | 2025-03-22 12:28 | PT.OTN ---
Current Diagnoses Lymphedema, not elsewhere classified (03/22/25) Soft tissue disorder, unspecified (03/22/25) Edema, unspecified (03/22/25) Physical Therapy Treatment Note PT-OP-A Visit Information Start: 03/21/25 10:44 Freq: Status: Active Protocol: Document 03/22/25 10:43 SAK (Rec: 03/22/25 11:26 SAK Laptop) Out-Patient Physical Therapy Visit Information Visit Information Visit Type Treatment Note Visit Start Time 10:45 Visit Stop Time 12:12 Visit Number 2 Evaluation Information Evaluation Date 03/21/25 Precautions Precautions PMH: IBS PT-OP-B Current Condition Start: 03/21/25 10:44 Freq: Status: Active Protocol: Document 03/22/25 10:43 SAK (Rec: 03/22/25 11:26 SAK Laptop) Current Condition History of Current Condition Onset Date 10 years Current Complaints swelling dayne distal lower legs left worst leg, painful to touch mediallyh History of Current Swelling bilateral lower legs left greater than right Condition worst in band above ankle, tender to touch especially on inside. Has had lymphatic massage 5x and didn't do anything. Tried accupuncture for lymphedatic drainage helpful; 5 yrs ago, accupuncturist , hasn't found another. Does have compression stockings, wears only for flying, though did try over the winter for 1 week and doesn't feel was helpful, not sure level of compression. States she really started to notice the swelling 10 yrs ago as she was going through menopause. Not sure if elevating legs helpful. Not hypermobile, doesn't notice excessive bruising. Is very active walking [address] 2-3 days per week and doing resistance exercises. Has IBS and is gluten intolerant, is careful with diet. Prior Treatments and None Tests Treatment Goals Patient/Caregiver reduce edema and be able to self manage Goals PT-OP-C Subjective Start: 03/21/25 10:44 Freq: Status: Active Protocol: Document 03/22/25 10:43 SAK (Rec: 03/22/25 12:27 SAK Laptop) OP-PT Subjective Patient Comments Patient Comments Patient reports she watched video on vibration plate on [employer], hasn't watched one yet re MLD. Had questions on MLD technique. Wearing one pair of compression stockings and brought other for PT evaluation. PT-OP-G Mobility & Gait Start: 03/21/25 10:44 Freq: Status: Active Protocol: Document 03/21/25 10:44 SAK (Rec: 03/21/25 12:28 SAK Laptop) OP Gait Assessment Gait Gait Assistance Independent Required: Assistive Devices Assistive Device None PT-OP-J Posture/Palpation/Skin Start: 03/21/25 10:44 Freq: Status: Active Protocol: Document 03/21/25 10:44 SAK (Rec: 03/21/25 12:28 SAK Laptop) Posture Evaluation Position Standing Knee Posture (L) Genu Recurvatum,(R) Genu Recurvatum Palpation Assessment Location medial lower legs Palpation Findings Edema,Tenderness Palpation Details Tenderness medially, approx 3in band thickened tissue proximal to ankles left greater than right; visible and palpable, no fibrosis or hyperkeratosis, no increase in warmth. Skin Assessment Edema Assessment dayne lower legs Edema Type Non-Pitting Edema Appearance Puffy Subjective Edema Pain Description Comments pain with palpation mediallyb PT-OP-K Range of Motion Start: 03/21/25 10:44 Freq: Status: Active Protocol: Document 03/21/25 16:11 SAK (Rec: 03/21/25 16:33 [facility] Laptop) Hip Goniometric Range of Motion Hip DAYNE Hip ROM WFL Yes Knee Goniometric Range of Motion Knee dayne Knee ROM WFL Yes Ankle and Foot Goniometric Range of Motion Ankle and Foot dayne Ankle/Foot ROM WFL Yes PT-OP-N Lymphedema Start: 03/21/25 10:44 Freq: Status: Active Protocol: Document 03/22/25 10:43 SAK (Rec: 03/22/25 12:27 [facility] Laptop) Lymphedema Measurements Lower Extremity Circumference Measurements Affected MT Heads 19.7 cm Mid-foot 19 cm Medial Malleolus 21.2 cm 10 cm From Medial 25.6 cm Malleolus 20 cm From Medial 25.6 cm Malleolus 30 cm From Medial 33.8 cm Malleolus 40 cm From Medial 36.7 cm Malleolus 50 cm From Medial 44 cm Malleolus Knee Joint 35.2 cm - RIGHT Left Affected MT Heads 19.5 cm Mid-foot 19.4 cm Medial Malleolus 20.2 cm 10 cm From Medial 24.8 cm Malleolus 20 cm From Medial 32 cm Malleolus 30 cm From Medial 30.5 cm Malleolus 40 cm From Medial 35.6 cm Malleolus 50 cm From Medial 41.2 cm Malleolus Knee Joint 33.7 cm PT-OP-Q Treatments Start: 03/21/25 10:44 Freq: Status: Active Protocol: Document 03/22/25 10:43 SAK (Rec: 03/22/25 12:27 SAK Laptop) Lymphedema Treatment Manual Lymphatic Drainage Location for dayne lower leg lymphedema Duration 240 Comments with patient education for technique. Pt. viewed video on self MLD of legs during PT LE circumfeential measuring. Lymphedema Wrapping Other Trial sizes 1 Juzo 20-30 mm Hg stocking loaner today due to poor fit and poor compression current stockings. No bandaging. Sequential Lymphedema Exercises Comments discussed, patient very highly physically active. May want to emphasize ankle ex next session. Compression Garment Assessment Compression Garment as above, pts garments with poor fit and coompression. Assessment Details Good fit of loaner Juzo Soft size 1 20-30 mm Hg compression stocking; pt to borrow over weekend Patient Education Compression Garments as above Self Manual continue education via demonstration, discussion, video Lymphatic Drainage PT-OP-T Assessment and Plan Start: 03/21/25 10:44 Freq: Status: Active Protocol: Document 03/22/25 10:43 SAK (Rec: 03/22/25 11:26 [facility] Laptop) Physical Therapy Assessment Rehab Potential Rehabilitation Good Potential Goals Two Impairment pain medial distal lower legs Axle And Frame Mechanic Goal (LTG) Patient to report at least a 50% reduction in pain for improved activity tolerance LTG Duration 06/21/25 One Impairment lipolymphedema dayne lower legs left greater than right Short Term Goal (STG Patient will be instructed in all aspects of lymphedema ) self-care to include skin care, elevation, self- massage, self-bandaging/compression options, and lymphedema exercises. STG Duration 05/02/25 [facility] Goal (LTG) Decrease patient?s lymphedema to a stable level (no increase or decrease greater than 1 cm over the course of 1 week), patient to be independent with all aspects of self-care for lymphedema, and will obtain appropriate compression garment for lymphedema management in the home. LTG Duration 06/21/25 Assessment Summary Assessment Reduction in circumferential measurements left LE with palpation revealing decreaseddefinition of swollen band . Circumferential measurements mildy increased on right today. Continued CDT, patient demonstrating improving understanding of self management. Patient wearing one pair current compression socks (too large, poor compression) and brought other (better fit but min compression). Issued loaner Juzo Soft size 1 20-30 mm Hg compression stocking; good fit noted. Patient to consider ordering pair online. Physical Therapy Plan Frequency and Duration Frequency of 20 Treatment Duration of 12 treatment (weeks) Plan of Care Start 03/21/25 Date Plan of Care End 06/21/25 Date Therapeutic Interventions Therapeutic Home Exercise Program,Lymphedema Management,Manual Interventions Therapy,Patient/Caregiver Education,Self-Care/Home Management,Soft Tissue Mobilization,Taping,Therapeutic Exercises Modalities Infrared Therapy,Vasopneumatic Devices Next Visit Focus/Plan Next Note Type Treatment Note Next Visit Plan Assess response to wearing loaner compression stocking left, patient to consider ordering. Continue CDT.
--- NOTE | 2025-03-29 16:52 | PT.OTN ---
Current Diagnoses Lymphedema, not elsewhere classified (03/29/25) Soft tissue disorder, unspecified (03/29/25) Edema, unspecified (03/29/25) Physical Therapy Treatment Note PT-OP-A Visit Information Start: 03/21/25 10:44 Freq: Status: Active Protocol: Document 03/29/25 14:28 SAK (Rec: 03/29/25 15:00 SAK Laptop) Out-Patient Physical Therapy Visit Information Visit Information Visit Type Treatment Note Visit Start Time 14:28 Visit Stop Time 15:54 Visit Number 3 Evaluation Information Evaluation Date 03/21/25 Precautions Precautions PMH: IBS PT-OP-B Current Condition Start: 03/21/25 10:44 Freq: Status: Active Protocol: Document 03/29/25 14:28 SAK (Rec: 03/29/25 15:00 SAK Laptop) Current Condition History of Current Condition Onset Date 10 years Current Complaints swelling dayne distal lower legs left worst leg, painful to touch mediallyh History of Current Swelling bilateral lower legs left greater than right Condition worst in band above ankle, tender to touch especially on inside. Has had lymphatic massage 5x and didn't do anything. Tried accupuncture for lymphedatic drainage helpful; 5 yrs ago, accupuncturist , hasn't found another. Does have compression stockings, wears only for flying, though did try over the winter for 1 week and doesn't feel was helpful, not sure level of compression. States she really started to notice the swelling 10 yrs ago as she was going through menopause. Not sure if elevating legs helpful. Not hypermobile, doesn't notice excessive bruising. Is very active walking [address] 2-3 days per week and doing resistance exercises. Has IBS and is gluten intolerant, is careful with diet. Prior Treatments and None Tests PT-OP-C Subjective Start: 03/21/25 10:44 Freq: Status: Active Protocol: Document 03/29/25 14:28 SAK (Rec: 03/29/25 15:00 SAK Laptop) OP-PT Subjective Patient Comments Patient Comments Reports things are going well, doing all PT recommended activities. Got compression stockings in mail today but ordered petite, not sure if will fit. Hasn't tried yet. Comes to PT wearing compress. Has been using the vibration plate. Patient Reported Improving Progress PT-OP-G Mobility & Gait Start: 03/21/25 10:44 Freq: Status: Active Protocol: Document 03/21/25 10:44 SAK (Rec: 03/21/25 12:28 [facility] Laptop) OP Gait Assessment Gait Gait Assistance Independent Required: Assistive Devices Assistive Device None PT-OP-J Posture/Palpation/Skin Start: 03/21/25 10:44 Freq: Status: Active Protocol: Document 03/21/25 10:44 SAK (Rec: 03/21/25 12:28 [facility] Laptop) Posture Evaluation Position Standing Knee Posture (L) Genu Recurvatum,(R) Genu Recurvatum Palpation Assessment Location medial lower legs Palpation Findings Edema,Tenderness Palpation Details Tenderness medially, approx 3in band thickened tissue proximal to ankles left greater than right; visible and palpable, no fibrosis or hyperkeratosis, no increase in warmth. Skin Assessment Edema Assessment dayne lower legs Edema Type Non-Pitting Edema Appearance Puffy Subjective Edema Pain Description Comments pain with palpation mediallyb PT-OP-K Range of Motion Start: 03/21/25 10:44 Freq: Status: Active Protocol: Document 03/21/25 16:11 SAK (Rec: 03/21/25 16:33 [facility] Laptop) Hip Goniometric Range of Motion Hip DAYNE Hip ROM WFL Yes Knee Goniometric Range of Motion Knee dayne Knee ROM WFL Yes Ankle and Foot Goniometric Range of Motion Ankle and Foot dayne Ankle/Foot ROM WFL Yes PT-OP-N Lymphedema Start: 03/21/25 10:44 Freq: Status: Active Protocol: Document 03/29/25 14:28 [facility] (Rec: 03/29/25 15:00 [facility] Laptop) Lymphedema Measurements Lower Extremity Circumference Measurements Affected MT Heads 19.3 cm Mid-foot 19.3 cm Medial Malleolus 19.8 cm 10 cm From Medial 25.2 cm Malleolus 20 cm From Medial 33 cm Malleolus 30 cm From Medial 31.2 cm Malleolus 40 cm From Medial 37.7 cm Malleolus 50 cm From Medial 41.8 cm Malleolus Knee Joint 35 cm - RIGHT Left Affected MT Heads 19.7 cm Mid-foot 19.7 cm Medial Malleolus 19.4 cm 10 cm From Medial 25.3 cm Malleolus 20 cm From Medial 31.8 cm Malleolus 30 cm From Medial 30.3 cm Malleolus 40 cm From Medial 35.7 cm Malleolus Knee Joint 34.4 cm PT-OP-Q Treatments Start: 03/21/25 10:44 Freq: Status: Active Protocol: Document 03/29/25 14:28 SAK (Rec: 03/29/25 15:00 [facility] Laptop) Lymphedema Treatment Manual Lymphatic Drainage Location for dayne lower leg lymphedema Duration 40 Comments with review patient education for technique. Lymphedema Wrapping Other [employer]uzo soft petite size 1 compression stockings; instructed donning and doffing Compression Garment Assessment Compression Garment good fit noted as above Assessment Details Patient Education Self Manual continue review and instruction technique Lymphatic Drainage PT-OP-T Assessment and Plan Start: 03/21/25 10:44 Freq: Status: Active Protocol: Document 03/29/25 14:28 [facility] (Rec: 03/29/25 15:00 SAK Laptop) Physical Therapy Assessment Goals Two Impairment pain medial distal lower legs Mcfp Goal (LTG) Patient to report at least a 50% reduction in pain for improved activity tolerance LTG Duration 06/21/25 One Impairment lipolymphedema dayne lower legs left greater than right Short Term Goal (STG Patient will be instructed in all aspects of lymphedema ) self-care to include skin care, elevation, self- massage, self-bandaging/compression options, and lymphedema exercises. STG Duration 05/02/25 Mcfp Goal (LTG) Decrease patient?s lymphedema to a stable level (no increase or decrease greater than 1 cm over the course of 1 week), patient to be independent with all aspects of self-care for lymphedema, and will obtain appropriate compression garment for lymphedema management in the home. LTG Duration 06/21/25 Assessment Summary Assessment Patient circumferential measurements decreased at ankles wearing trial compression stockings. Patient ordered own compression stockings, ordered petite that seem to fit well. Patient instructed in donning and doffing. Also instructed in option of KT tape using video and demo, issued 2 strips KT tape. Continued with MLD with further review/instruction technique. Patient pleased with progress of decrease in ankle edema. Advised contact physician for order for compression stockings to obtain through fitter for insurance coverage. Good progress. Physical Therapy Plan Frequency and Duration Frequency of 20 Treatment Duration of 12 treatment (weeks) Plan of Care Start 03/21/25 Date Plan of Care End 06/21/25 Date Therapeutic Interventions Therapeutic Home Exercise Program,Lymphedema Management,Manual Interventions Therapy,Patient/Caregiver Education,Self-Care/Home Management,Soft Tissue Mobilization,Taping,Therapeutic Exercises Modalities Infrared Therapy,Vasopneumatic Devices Next Visit Focus/Plan Next Note Type Treatment Note Next Visit Plan circumferential measurements, assess tolerance to new compression stockings
--- NOTE | 2025-03-31 15:51 | PT.OTN ---
Current Diagnoses Lymphedema, not elsewhere classified (03/31/25) Soft tissue disorder, unspecified (03/31/25) Edema, unspecified (03/31/25) Physical Therapy Treatment Note PT-OP-A Visit Information Start: 03/21/25 10:44 Freq: Status: Active Protocol: Document 03/31/25 14:34 [facility]AK (Rec: 03/31/25 15:20 [facility] Laptop) Out-Patient Physical Therapy Visit Information Visit Information Visit Type Treatment Note Visit Start Time 14:32 Visit Stop Time 15:54 Visit Number 3 Evaluation Information Evaluation Date 03/21/25 Precautions Precautions PMH: IBS PT-OP-B Current Condition Start: 03/21/25 10:44 Freq: Status: Active Protocol: Document 03/31/25 14:34 [facility]AK (Rec: 03/31/25 15:20 [facility]AK Laptop) Current Condition History of Current Condition Onset Date 10 years Current Complaints swelling dayne distal lower legs left worst leg, painful to touch mediallyh History of Current Swelling bilateral lower legs left greater than right Condition worst in band above ankle, tender to touch especially on inside. Has had lymphatic massage 5x and didn't do anything. Tried accupuncture for lymphedatic drainage helpful; 5 yrs ago, accupuncturist , hasn't found another. Does have compression stockings, wears only for flying, though did try over the winter for 1 week and doesn't feel was helpful, not sure level of compression. States she really started to notice the swelling 10 yrs ago as she was going through menopause. Not sure if elevating legs helpful. Not hypermobile, doesn't notice excessive bruising. Is very active walking [address] 2-3 days per week and doing resistance exercises. Has IBS and is gluten intolerant, is careful with diet. Prior Treatments and None Tests PT-OP-C Subjective Start: 03/21/25 10:44 Freq: Status: Active Protocol: Document 03/31/25 14:34 [facility] (Rec: 03/31/25 15:20 [facility] Laptop) OP-PT Subjective Patient Comments Patient Comments Reports new compression comfortable, easier to don, less pain and soreness in ankle. Thinks will order regular length next time. PT-OP-G Mobility & Gait Start: 03/21/25 10:44 Freq: Status: Active Protocol: Document 03/21/25 10:44 [facility]AK (Rec: 03/21/25 12:28 [facility] Laptop) OP Gait Assessment Gait Gait Assistance Independent Required: Assistive Devices Assistive Device None PT-OP-J Posture/Palpation/Skin Start: 03/21/25 10:44 Freq: Status: Active Protocol: Document 03/21/25 10:44 [facility] (Rec: 03/21/25 12:28 [facility] Laptop) Posture Evaluation Position Standing Knee Posture (L) Genu Recurvatum,(R) Genu Recurvatum Palpation Assessment Location medial lower legs Palpation Findings Edema,Tenderness Palpation Details Tenderness medially, approx 3in band thickened tissue proximal to ankles left greater than right; visible and palpable, no fibrosis or hyperkeratosis, no increase in warmth. Skin Assessment Edema Assessment dayne lower legs Edema Type Non-Pitting Edema Appearance Puffy Subjective Edema Pain Description Comments pain with palpation mediallyb PT-OP-K Range of Motion Start: 03/21/25 10:44 Freq: Status: Active Protocol: Document 03/21/25 16:11 [facility] (Rec: 03/21/25 16:33 [facility] Laptop) Hip Goniometric Range of Motion Hip DAYNE Hip ROM WFL Yes Knee Goniometric Range of Motion Knee dayne Knee ROM WFL Yes Ankle and Foot Goniometric Range of Motion Ankle and Foot dayne Ankle/Foot ROM WFL Yes PT-OP-N Lymphedema Start: 03/21/25 10:44 Freq: Status: Active Protocol: Document 03/31/25 14:34 [facility] (Rec: 03/31/25 15:20 [facility] Laptop) Lymphedema Measurements Lower Extremity Circumference Measurements Affected MT Heads 19.7 cm Mid-foot 19.8 cm Medial Malleolus 19.5 cm 10 cm From Medial 25.4 cm Malleolus 20 cm From Medial 33.2 cm Malleolus 30 cm From Medial 32 cm Malleolus 40 cm From Medial 37.8 cm Malleolus 50 cm From Medial 44.2 cm Malleolus Knee Joint 35.2 cm - RIGHT Left Affected MT Heads 19.7 cm Mid-foot 19.7 cm Medial Malleolus 19.4 cm 10 cm From Medial 25.3 cm Malleolus 20 cm From Medial 32.4 cm Malleolus 30 cm From Medial 30.6 cm Malleolus 40 cm From Medial 36.2 cm Malleolus 50 cm From Medial 41.2 cm Malleolus Knee Joint 33.9 cm PT-OP-Q Treatments Start: 03/21/25 10:44 Freq: Status: Active Protocol: Document 03/31/25 14:34 [facility] (Rec: 03/31/25 15:20 [facility] Laptop) Lymphedema Treatment Manual Lymphatic Drainage Location for dayne lower leg lymphedema Duration 40 Comments with review patient education for technique. Lymphedema Wrapping Other [employer] soft petite size 1 compression stockings; instructed donning and doffing Compression Garment Assessment Compression Garment good fit new compression stocking Assessment Details PT-OP-T Assessment and Plan Start: 03/21/25 10:44 Freq: Status: Active Protocol: Document 03/31/25 14:34 [facility] (Rec: 03/31/25 15:20 [facility] Laptop) Physical Therapy Assessment Rehab Potential Rehabilitation Good Potential Goals Two Impairment pain medial distal lower legs Opto Mechanical Technician Goal (LTG) Patient to report at least a 50% reduction in pain for improved activity tolerance LTG Duration 06/21/25 One Impairment lipolymphedema dayne lower legs left greater than right Short Term Goal (STG Patient will be instructed in all aspects of lymphedema ) self-care to include skin care, elevation, self- massage, self-bandaging/compression options, and lymphedema exercises. STG Duration 05/02/25 Opto Mechanical Technician Goal (LTG) Decrease patient?s lymphedema to a stable level (no increase or decrease greater than 1 cm over the course of 1 week), patient to be independent with all aspects of self-care for lymphedema, and will obtain appropriate compression garment for lymphedema management in the home. LTG Duration 06/21/25 Assessment Summary Assessment Stable circumferential measurements. Patient wearing compression stockings dayne LE. Did trial sequential pneumatic pump L LE , decreased measurements after .2-. 5 cm dec. Patient highly compliant to self care as instructed. Physical Therapy Plan Frequency and Duration Frequency of 20 Treatment Duration of 12 treatment (weeks) Plan of Care Start 03/21/25 Date Plan of Care End 06/21/25 Date Therapeutic Interventions Therapeutic Home Exercise Program,Lymphedema Management,Manual Interventions Therapy,Patient/Caregiver Education,Self-Care/Home Management,Soft Tissue Mobilization,Taping,Therapeutic Exercises Modalities Infrared Therapy,Vasopneumatic Devices Next Visit Focus/Plan Next Note Type Treatment Note Next Visit Plan circumferential measurements, assess tolerance sequential pneumatic pump.
--- NOTE | 2025-04-05 16:15 | PT.OTN ---
Current Diagnoses Lymphedema, not elsewhere classified (04/05/25) Soft tissue disorder, unspecified (04/05/25) Edema, unspecified (04/05/25) Physical Therapy Treatment Note PT-OP-A Visit Information Start: 03/21/25 10:44 Freq: Status: Active Protocol: Document 04/05/25 15:16 [facility] (Rec: 04/05/25 15:43 [facility] Laptop) Out-Patient Physical Therapy Visit Information Visit Information Visit Type Treatment Note Visit Start Time 15:16 Visit Stop Time 16:20 Visit Number 4 PT-OP-B Current Condition Start: 03/21/25 10:44 Freq: Status: Active Protocol: Document 04/05/25 15:16 [facility] (Rec: 04/05/25 16:11 [facility]AK Laptop) Current Condition History of Current Condition Onset Date 10 years Current Complaints swelling dayne distal lower legs left worst leg, painful to touch mediallyh History of Current Swelling bilateral lower legs left greater than right Condition worst in band above ankle, tender to touch especially on inside. Has had lymphatic massage 5x and didn't do anything. Tried accupuncture for lymphedatic drainage helpful; 5 yrs ago, accupuncturist , hasn't found another. Does have compression stockings, wears only for flying, though did try over the winter for 1 week and doesn't feel was helpful, not sure level of compression. States she really started to notice the swelling 10 yrs ago as she was going through menopause. Not sure if elevating legs helpful. Not hypermobile, doesn't notice excessive bruising. Is very active walking [address] 2-3 days per week and doing resistance exercises. Has IBS and is gluten intolerant, is careful with diet. Prior Treatments and None Tests PT-OP-C Subjective Start: 03/21/25 10:44 Freq: Status: Active Protocol: Document 04/05/25 15:16 [facility] (Rec: 04/05/25 15:43 [facility]AK Laptop) OP-PT Subjective Patient Comments Patient Comments Reports thinks left hand is smaller, no ridge, softer and more pliable. Not as severe puffy. Thinks edema less after pump, then increased the next am, but since then has been less. Interested in sequential pneumativc PT-OP-G Mobility & Gait Start: 03/21/25 10:44 Freq: Status: Active Protocol: Document 03/21/25 10:44 [facility] (Rec: 03/21/25 12:28 [facility]AK Laptop) OP Gait Assessment Gait Gait Assistance Independent Required: Assistive Devices Assistive Device None PT-OP-J Posture/Palpation/Skin Start: 03/21/25 10:44 Freq: Status: Active Protocol: Document 03/21/25 10:44 [facility] (Rec: 03/21/25 12:28 [facility] Laptop) Posture Evaluation Position Standing Knee Posture (L) Genu Recurvatum,(R) Genu Recurvatum Palpation Assessment Location medial lower legs Palpation Findings Edema,Tenderness Palpation Details Tenderness medially, approx 3in band thickened tissue proximal to ankles left greater than right; visible and palpable, no fibrosis or hyperkeratosis, no increase in warmth. Skin Assessment Edema Assessment dayne lower legs Edema Type Non-Pitting Edema Appearance Puffy Subjective Edema Pain Description Comments pain with palpation mediallyb PT-OP-K Range of Motion Start: 03/21/25 10:44 Freq: Status: Active Protocol: Document 03/21/25 16:11 [facility] (Rec: 03/21/25 16:33 [facility] Laptop) Hip Goniometric Range of Motion Hip DAYNE Hip ROM WFL Yes Knee Goniometric Range of Motion Knee dayne Knee ROM WFL Yes Ankle and Foot Goniometric Range of Motion Ankle and Foot dayne Ankle/Foot ROM WFL Yes PT-OP-N Lymphedema Start: 03/21/25 10:44 Freq: Status: Active Protocol: Document 04/05/25 15:16 [facility] (Rec: 04/05/25 15:43 [facility]AK Laptop) Lymphedema Measurements Lower Extremity Circumference Measurements Affected MT Heads 19.7 cm Mid-foot 19.3 cm Medial Malleolus 20.2 cm 10 cm From Medial 24.7 cm Malleolus 20 cm From Medial 33.7 cm Malleolus 30 cm From Medial 32.2 cm Malleolus 40 cm From Medial 37.2 cm Malleolus 50 cm From Medial 42.7 cm Malleolus Knee Joint 35.8 cm - RIGHT Left Affected MT Heads 19.7 cm Mid-foot 19.5 cm Medial Malleolus 19.7 cm 10 cm From Medial 26 cm Malleolus 20 cm From Medial 33 cm Malleolus 30 cm From Medial 30.7 cm Malleolus 40 cm From Medial 36.8 cm Malleolus 50 cm From Medial 41.2 cm Malleolus 60 cm From Medial 42.8 cm Malleolus Knee Joint 35.5 cm PT-OP-Q Treatments Start: 03/21/25 10:44 Freq: Status: Active Protocol: Document 04/05/25 15:16 [facility] (Rec: 04/05/25 16:10 [facility] Laptop) Lymphedema Treatment Manual Lymphatic Drainage Location right LE during pump on left Duration 25 Comments with review patient education for technique. Sequential Lymphedema Exercises Comments pt continues HEP PT-OP-T Assessment and Plan Start: 03/21/25 10:44 Freq: Status: Active Protocol: Document 04/05/25 15:16 [facility] (Rec: 04/05/25 15:43 [facility] Laptop) Physical Therapy Assessment Rehab Potential Rehabilitation Good Potential Evaluation Complexity Number of Personal 1-2 Factors/ Comorbidities Clinical Evolving Presentation at Evaluation Impairments Impairments Edema,Pain Goals Two Impairment pain medial distal lower legs Conference Services Coordinator Goal (LTG) Patient to report at least a 50% reduction in pain for improved activity tolerance LTG Duration 06/21/25 One Impairment lipolymphedema dayne lower legs left greater than right Short Term Goal (STG Patient will be instructed in all aspects of lymphedema ) self-care to include skin care, elevation, self- massage, self-bandaging/compression options, and lymphedema exercises. STG Duration 05/02/25 Conference Services Coordinator Goal (LTG) Decrease patient?s lymphedema to a stable level (no increase or decrease greater than 1 cm over the course of 1 week), patient to be independent with all aspects of self-care for lymphedema, and will obtain appropriate compression garment for lymphedema management in the home. LTG Duration 06/21/25 Assessment Summary Assessment Patient noting lack of ridge of swelling left ankle with increased tissue pliability. Circumferential measurements left mildly increased though patient noted an increase in weight. Measurements on right variable , some inc,, some dec. Patient highly compliant to self care. Good tolerance pneumatic compression pump. May benefit from use at home. Physical Therapy Plan Frequency and Duration Frequency of 20 Treatment Duration of 12 treatment (weeks) Plan of Care Start 03/21/25 Date Plan of Care End 06/21/25 Date Next Visit Focus/Plan Next Note Type Treatment Note Next Visit Plan Continue CDT. Assess need for home sequential pneumatic pump.
--- NOTE | 2025-04-18 16:22 | PT.OTN ---
Current Diagnoses Lymphedema, not elsewhere classified (04/18/25) Soft tissue disorder, unspecified (04/18/25) Edema, unspecified (04/18/25) Physical Therapy Treatment Note PT-OP-A Visit Information Start: 03/21/25 10:44 Freq: Status: Active Protocol: Document 04/18/25 14:36 SAK (Rec: 04/18/25 15:15 SAK Laptop) Out-Patient Physical Therapy Visit Information Visit Information Visit Type Treatment Note Visit Start Time 14:36 Visit Stop Time 15:45 Visit Number 5 Number of BUT[employer] CH[employer] FISH Visits 0 Precautions Precautions PMH: IBS PT-OP-B Current Condition Start: 03/21/25 10:44 Freq: Status: Active Protocol: Document 04/05/25 15:16 SAK (Rec: 04/05/25 16:11 SAK Laptop) Current Condition History of Current Condition Onset Date 10 years Current Complaints swelling dayne distal lower legs left worst leg, painful to touch mediallyh History of Current Swelling bilateral lower legs left greater than right Condition worst in band above ankle, tender to touch especially on inside. Has had lymphatic massage 5x and didn't do anything. Tried accupuncture for lymphedatic drainage helpful; 5 yrs ago, accupuncturist , hasn't found another. Does have compression stockings, wears only for flying, though did try over the winter for 1 week and doesn't feel was helpful, not sure level of compression. States she really started to notice the swelling 10 yrs ago as she was going through menopause. Not sure if elevating legs helpful. Not hypermobile, doesn't notice excessive bruising. Is very active walking [address] 2-3 days per week and doing resistance exercises. Has IBS and is gluten intolerant, is careful with diet. Prior Treatments and None Tests PT-OP-C Subjective Start: 03/21/25 10:44 Freq: Status: Active Protocol: Document 04/18/25 14:36 SAK (Rec: 04/18/25 15:15 SAK Laptop) OP-PT Subjective Patient Comments Patient Comments Has been elevating legs more end of day. Overall has been better but reports came back from road trip and states her left ankle area was spongy and more swollen . PT-OP-G Mobility & Gait Start: 03/21/25 10:44 Freq: Status: Active Protocol: Document 03/21/25 10:44 SAK (Rec: 03/21/25 12:28 SAK Laptop) OP Gait Assessment Gait Gait Assistance Independent Required: Assistive Devices Assistive Device None PT-OP-J Posture/Palpation/Skin Start: 03/21/25 10:44 Freq: Status: Active Protocol: Document 03/21/25 10:44 SAK (Rec: 03/21/25 12:28 SAK Laptop) Posture Evaluation Position Standing Knee Posture (L) Genu Recurvatum,(R) Genu Recurvatum Palpation Assessment Location medial lower legs Palpation Findings Edema,Tenderness Palpation Details Tenderness medially, approx 3in band thickened tissue proximal to ankles left greater than right; visible and palpable, no fibrosis or hyperkeratosis, no increase in warmth. Skin Assessment Edema Assessment dayne lower legs Edema Type Non-Pitting Edema Appearance Puffy Subjective Edema Pain Description Comments pain with palpation mediallyb PT-OP-K Range of Motion Start: 03/21/25 10:44 Freq: Status: Active Protocol: Document 03/21/25 16:11 SAK (Rec: 03/21/25 16:33 SAK Laptop) Hip Goniometric Range of Motion Hip DAYNE Hip ROM WFL Yes Knee Goniometric Range of Motion Knee dayne Knee ROM WFL Yes Ankle and Foot Goniometric Range of Motion Ankle and Foot dayne Ankle/Foot ROM WFL Yes PT-OP-N Lymphedema Start: 03/21/25 10:44 Freq: Status: Active Protocol: Document 04/18/25 14:36 SAK (Rec: 04/18/25 15:15 SAK Laptop) Lymphedema Measurements Lower Extremity Circumference Measurements Left Affected MT Heads 19.7 cm Mid-foot 19.7 cm Medial Malleolus 19.7 cm 10 cm From Medial 26.9 cm Malleolus 20 cm From Medial 33.6 cm Malleolus 30 cm From Medial 31.7 cm Malleolus 40 cm From Medial 37.5 cm Malleolus 50 cm From Medial 45.2 cm Malleolus Knee Joint 35.7 cm PT-OP-Q Treatments Start: 03/21/25 10:44 Freq: Status: Active Protocol: Document 04/18/25 14:36 SAK (Rec: 04/18/25 16:22 SAK Laptop) Self-Care/Home Management Treatment Education Other Education benefits of sequential pneumatic pump Lymphedema Treatment Manual Lymphatic Drainage Location right LE during pump on left Duration 25 Comments with review patient education for technique. Lymphedema Wrapping Other Pt. wearing Juzo soft petite sizes 1 compression stockings; independent in donning and doffing now Patient Education Other benefits of pneumatic compression pumps PT-OP-T Assessment and Plan Start: 03/21/25 10:44 Freq: Status: Active Protocol: Document 04/18/25 14:36 SAK (Rec: 04/18/25 15:15 SAK Laptop) Physical Therapy Assessment Goals Two Impairment pain medial distal lower legs Long-Term Goal (LTG) Patient to report at least a 50% reduction in pain for improved activity tolerance 04/18/25: good goal progress LTG Duration 06/21/25 One Impairment lipolymphedema dayne lower legs left greater than right Short Term Goal (STG Patient will be instructed in all aspects of lymphedema ) self-care to include skin care, elevation, self- massage, self-bandaging/compression options, and lymphedema exercises. 04/19/25: goal met STG Duration goal met Boat Worker Goal (LTG) Decrease patient?s lymphedema to a stable level (no increase or decrease greater than 1 cm over the course of 1 week), patient to be independent with all aspects of self-care for lymphedema, and will obtain appropriate compression garment for lymphedema management in the home. LTG Duration 06/21/25 Progress Towards Goals Progress Towards Progressing Toward Goals Goals Assessment Summary Assessment Noted increase in circumferential measurements today, likely due to travel, increased time in car with legs dependent. Patient is highly compliant to all aspects of lymphedema care. She is considering whether she would like to request sequential pneumatic pump for home use; have noted reductions in measurements after treatments in PT. Physical Therapy Plan Frequency and Duration Frequency of 20 Treatment Duration of 12 treatment (weeks) Plan of Care Start 03/21/25 Date Plan of Care End 06/21/25 Date Other Referrals/Consults Referrals/Consults possible referral for pneumatic compression pump; will Recommended discuss further next session Next Visit Focus/Plan Next Note Type Treatment Note Next Visit Plan Continue CDT. Further discussion of home sequential pneumatic pump
--- NOTE | 2025-04-28 16:19 | PT.OTN ---
Current Diagnoses Lymphedema, not elsewhere classified (04/28/25) Soft tissue disorder, unspecified (04/28/25) Edema, unspecified (04/28/25) Physical Therapy Treatment Note PT OP: Lymphedema Lower Extremity Start: 04/28/25 13:00 Freq: Status: Active Protocol: Document 04/28/25 13:01 AB (Rec: 04/28/25 13:22 AB [id number]) Out-Patient Physical Therapy Visit Information Visit Information Visit Type Treatment Note Visit Start Time 13:03 Visit Stop Time 13:46 Visit Number 6 Number of LEGAL BILLING CLERK Visits 1 OP-PT Subjective Patient Comments Patient Comments Patient reports she hurt her back last Friday so couldn't keila socks or do exercises, but is back to it now. Lymphedema Measurements Lower Extremity Circumference Measurements Left Affected MT Heads 19.7 cm Mid-foot 19.5 cm Medial Malleolus 19.7 cm 10 cm From Medial 25.6 cm Malleolus 20 cm From Medial 33 cm Malleolus 30 cm From Medial 31.1 cm Malleolus 40 cm From Medial 35.8 cm Malleolus 50 cm From Medial 40.8 cm Malleolus Knee Joint 33.5 cm Lymphedema Treatment Manual Lymphatic Drainage Location all drains but R axillary as pt reports she just did that area, highways * Comments anterior, bilateral LE's and supraclavicular area Lymphedema Wrapping Other Patient with her compression stockings Sequential Lymphedema Exercises Location breathing from diaphragm, glute sets ankle pumps, quad sets Comments verbal cues, patient ed importance of breathing from diaphragm to clear drain. Compression Pump Treatment Treatment Location L LE Pressure Amount ( 45 mmHg) (mmHG) Treatment Comments 15 min Physical Therapy Assessment Goals Two Impairment pain medial distal lower legs Retirement Goal (LTG) Patient to report at least a 50% reduction in pain for improved activity tolerance 04/18/25: good goal progress LTG Duration 06/21/25 One Impairment lipolymphedema belinda lower legs left greater than right Short Term Goal (STG Patient will be instructed in all aspects of lymphedema ) self-care to include skin care, elevation, self- massage, self-bandaging/compression options, and lymphedema exercises. 04/19/25: goal met STG Duration goal met Retirement Goal (LTG) Decrease patient?s lymphedema to a stable level (no increase or decrease greater than 1 cm over the course of 1 week), patient to be independent with all aspects of self-care for lymphedema, and will obtain appropriate compression garment for lymphedema management in the home. LTG Duration 06/21/25 Assessment Summary Assessment Decrease in most circumferential measurements to day L LE, and decrease further at medial malleolus post using pump. Physical Therapy Plan Frequency and Duration Frequency of 20 Treatment Duration of 12 treatment (weeks) Plan of Care Start 03/21/25 Date Plan of Care End 06/21/25 Date Next Visit Focus/Plan Next Note Type Treatment Note Next Visit Plan med mall 19.5 cm circumference post use of pump decreased from 19.7 from start of session
--- NOTE | 2025-05-10 13:28 | PT.OPDS ---
Current Diagnoses Lymphedema, not elsewhere classified (05/10/25) Soft tissue disorder, unspecified (05/10/25) Edema, unspecified (05/10/25) Visit Care Team Role Provider Type Marily Carrillo DO Attending Provider Physician Family Provider Primary Care Provider Referring Provider Specialty: Medical Address: [address] [place] [address], [address], [place], [address] Email: [email or web address] Visit Number Visit Number 7 Discharge Summary PT OP: Lymphedema Lower Extremity Start: 04/28/25 13:00 Freq: Status: Active Protocol: Document 05/10/25 12:58 SAK (Rec: 05/10/25 13:28 SAK Laptop) Out-Patient Physical Therapy Visit Information Visit Information Visit Type Treatment Note Visit Start Time 13:00 Visit Stop Time 13:45 Visit Number 7 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 Lymphedema Measurements Lower Extremity Circumference Measurements Affected MT Heads 19.8 cm Mid-foot 19.3 cm Medial Malleolus 19.8 cm 10 cm From Medial 25.9 cm Malleolus 20 cm From Medial 33.8 cm Malleolus 30 cm From Medial 32.3 cm Malleolus 40 cm From Medial 37 cm Malleolus 50 cm From Medial 44.3 cm Malleolus Knee Joint 35.2 cm - RIGHT Left Affected MT Heads 20 cm Mid-foot 19.3 cm Medial Malleolus 20 cm 10 cm From Medial 25.7 cm Malleolus 20 cm From Medial 32.7 cm Malleolus 30 cm From Medial 31.3 cm Malleolus 40 cm From Medial 36.8 cm Malleolus 50 cm From Medial 44.7 cm Malleolus Knee Joint 34.7 cm Lymphedema Treatment Manual Lymphatic Drainage Location all drains but R axillary as pt reports she just did that area, highways * Comments anterior, bilateral LE's and supraclavicular area Lymphedema Wrapping Other Patient with her compression stockings Sequential Lymphedema Exercises Location breathing from diaphragm, glute sets ankle pumps, quad sets Comments verbal cues, patient ed importance of breathing from diaphragm to clear drain. Compression Pump Treatment Treatment Location L LE Pressure Amount ( 45 mmHg) (mmHG) Treatment Comments 15 min Physical Therapy Assessment Goals Two Impairment pain medial distal lower legs Prison Goal (LTG) Patient to report at least a 50% reduction in pain for improved activity tolerance 04/18/25: good goal progress 05/10/25: goal met LTG Duration 06/21/25 One Impairment lipolymphedema belinda lower legs left greater than right Short Term Goal (STG Patient will be instructed in all aspects of lymphedema ) self-care to include skin care, elevation, self- massage, self-bandaging/compression options, and lymphedema exercises. 04/19/25: goal met STG Duration goal met Comic Writer Goal (LTG) Decrease patient?s lymphedema to a stable level (no increase or decrease greater than 1 cm over the course of 1 week), patient to be independent with all aspects of self-care for lymphedema, and will obtain appropriate compression garment for lymphedema management in the home. : goal met LTG Duration 06/21/25 Assessment Summary Assessment Most measurements stable. Patient has compression stockings, doing all self care at home, ready for discharge. Instructed to monitor for any worsening and especially increase in size in thighs. Physical Therapy Plan Frequency and Duration Frequency of 20 Treatment Duration of 12 treatment (weeks) Plan of Care Start 03/21/25 Date Plan of Care End 06/21/25 Date Discharge Physical Therapy Discharge Reasons Goals Met
== END 2025-05-11 13:47 | disposition home or self-care (01) ==
LOC: PHYS 13:00
PROVIDERS: Family Provider Family Medicine; PCP Family Medicine; Referring Provider Family Medicine; Visit Provider Family Medicine
DX: R60.9 Edema, unspecified (principal); I89.0 Lymphedema, not elsewhere classified; M79.9 Soft tissue disorder, unspecified
CPT/HCPCS: 97016; 97110; 97140; 97162; 97530; 97535